=== PATIENT | female | born 1985 | race Caucasian/White ===

== ENCOUNTER 2017-09-21 15:37 | Emergency (ER) | payer BC ==
[~2017-09-21] VITALS: Ht 160 cm; Wt 77.1 kg
[~2017-09-21 15:37] MED LIST: ACHD5005 PO; ANTI14DR4 OT; AZIT250T81 PO; BENZ100C18 PO; BUTA1CAP40 PO; CEPH500C PO; DAYQUIL; DOXY100C2 PO; FLUO40CA PO; OCP; PNT40TEC PO; PRD20T PO; ROBITUSSIN; SCR1T1 PO; SERT50TA9 PO; sprintec PO
[2017-09-21] MEDS ORDERED: LIDOCAINE 1% INJ 20 ML (XYLOCAINE) VIAL INJ ONE (16:00)
[2017-09-21] MEDS ORDERED: cefTRIAXone 250 MG (ROCEPHIN) VIAL IM ONE (16:00)
[2017-09-21] MEDS ORDERED: AZITHROMYCIN 250 MG TAB (ZITHROMAX) PO STA (16:00)
--- NOTE | 2017-09-21 16:17 | ED GU-Female ---
General Stated Complaint: SEVERE ABD PAIN Source: patient Exam Limitations: no limitations History of Present Illness Time seen by provider: 15:55 Initial Comments Here with concerns about Chlamydia. Patient's boyfriend apparently was treated for Chlamydia last night. She denies any significant dysuria. She is here for treatment. Does have some lower abdominal pain but she is currently on her period and states that it feels like period cramps. Timing/Duration: yesterday Severity/Quality: mild Location: suprapubic Radiation: none Activities at Onset: none Sexual [place] History: less than 2 months ago, single partner Associated Symptoms: No fever/chills, No lower back pain, No nausea/vomiting, No urinary frequency Allergies and Home Medications Allergies Uncoded Allergies: NASAL SPRAYS (Adverse Reaction, Unknown, 08/25/14) Home Medications Antipyrine/Benzocaine 14 Ml Drops, 14 ML OT, (Reported) Azithromycin 250 Mg Tablet, 250 MG PO DAILY, #4 Prescribed by: TORRES SILVESTRE on 09/25/14 0139 Constitutional: see HPI, No chills, No fever Respiratory: no symptoms reported Cardiovascular: no symptoms reported Gastrointestinal: see HPI Genitourinary: see HPI Past Eihdekr-Uneumf-Wfapkt Hx Patient Social History Alcohol Use: Denies Use Recreational Drug Use: No Smoking Status: Former Smoker Recent Foreign Travel: No Contact w/Someone Who Travel: No Seasonal Allergies Seasonal Allergies: Yes Surgeries History of Surgeries: Yes Surgeries: Orthopedic, Tonsillectomy Reproductive System Hx Reproductive Disorders: No Gastrointestinal History of Gastrointestinal Di: Yes Gastrointestinal Disorders: Gastroesophageal Reflux Psychosocial Behavioral Health Disorders: Depression Reviewed Nursing Assessment Reviewed/Agree w Nursing PMH: Yes Family Medical History Significant Family History: No Pertinent Family Hx Physical Exam Vital Signs Capillary Refill : General Appearance: WD/WN, no apparent distress Cardiovascular: regular rate, rhythm, no murmur Respiratory: lungs clear, normal breath sounds Gastrointestinal: non tender, soft Neurologic/Psychiatric: alert, oriented x 3 Skin: normal color, warm/dry Progress/Results/Core Measures Suspected Sepsis SIRS Temperature: Pulse: Respiratory Rate: Blood Pressure / Mean: Results/Orders Lab Results Laboratory Tests Test 09/21/17 16:00 Range/Units My Orders Orders - TORRES SILVESTRE MD Urine Bedside (09/21/17 16:00) Ua Culture If Indicated (09/21/17 16:00) Ceftriaxone Injection (Rocephin Injectio (09/21/17 16:00) Azithromycin Tablet (Zithromax Tablet) (09/21/17 16:00) Lidocaine 1% Injection (Xylocaine 1% Inj (09/21/17 16:00) Neis Casey Dna Urine Test (09/21/17 16:00) Chlamydia Dna (09/21/17 16:00) Vital Signs/I&O Capillary Refill : Progress Note : Progress Note Seen and evaluated. UA and UCG ordered. Azithromycin 1000 mg by mouth and Rocephin 250 mg IM ordered. Discharged home with return precautions. Patient verbalize understanding instructions and agreement with plan. Departure Impression Impression: Primary Impression: STI (sexually transmitted infection) Disposition: HOME, SELF-CARE Condition: Improved Departure-Patient Inst. Decision time for Depature: 16:16 Referrals: RUFINO GAMEZ MD (PCP/Family) Primary Care Physician Patient Instructions: Sexually-Transmitted Diseases (DC) Add. Discharge Instructions: Follow-up with your Dr. in a few days for recheck. You may take ibuprofen or Tylenol as needed for pain per package directions. Return for worse pain, fever , vomiting, weakness, breathing problems or other concerns as needed. TORRES SILVESTRE MD Sep 21, 2017 16:17
[2017-09-21 16:21] LABS: BILIRUBIN,URINE NEGATIVE (NEGATIVE); CLARITY,URINE CLEAR; COLOR,URINE YELLOW; GLUCOSE, URINE (UA) NEGATIVE (NEGATIVE); KETONES,URINE 1+ (NEGATIVE); LEUKOCYTE ESTERASE ,URINE NEGATIVE (NEGATIVE); NITRITE,URINE NEGATIVE (NEGATIVE); PH,URINE 6 (5-9); PROTEIN,URINE 2+ (NEGATIVE); UROBILINOGEN,URINE NORMAL (NORMAL)
[2017-09-21 16:42] LABS: BACTERIA,URINE TRACE /HPF; SQUAMOUS EPITHELIAL CELL,UR 0-2 /HPF; WBC,URINE RARE /HPF
[2017-09-21 17:38] VITALS: BP 132/78
--- OUTSIDE RECORDS SUMMARY | 2017-09-22 00:34 | XMS REPORT | Continuity of Care Document ---
Author Author [facility] Organization [facility] Address Unknown Phone Unavailable Allergies Active Description Code Type Severity Reaction Onset Reported/Identified Relationship to Patient Clinical Status Yes NASAL SPRAYS NASAL SPRAYS Unknown N/A 08/25/2014 Medications There is no data. Problems Date Dx Coded Attending Type Code Diagnosis Diagnosed By 08/28/2012 Ot 466.0 08/28/2012 Ot 786.2 02/05/2013 MIMI MILIAN DO Ot 462 2013 YULIET SOLER MD Ot 530.81 2013 YULIET SOLER MD Ot 786.50 08/25/2014 Ot 339.42 08/25/2014 Ot 784.0 09/25/2014 TORRES SILVESTRE MD Ot 380.10 09/25/2014 TORRES SILVESTRE MD Ot 382.9 09/25/2014 TORRES SILVESTRE MD Ot 388.70 Procedures There is no data. Results Test Result Range Complete urinalysis with reflex to culture - 09/21/17 16:00 Urine color determination YELLOW NRG Urine clarity determination CLEAR NRG Urine pH measurement by test strip 6 5-9 Specific gravity of urine by test strip 1.025 1.016- 1.022 Urine protein assay by test strip, semi-quantitative 2+ NEGATIVE Urine glucose detection by automated test strip NEGATIVE NEGATIVE Erythrocytes detection in urine sediment by light microscopy 2+ NEGATIVE Urine ketones detection by automated test strip 1+ NEGATIVE Urine nitrite detection by test strip NEGATIVE NEGATIVE Urine total bilirubin detection by test strip NEGATIVE NEGATIVE Urine urobilinogen measurement by automated test strip (mass/volume) NORMAL NORMAL Urine leukocyte esterase detection by dipstick NEGATIVE NEGATIVE Automated urine sediment erythrocyte count by microscopy (number/high power field) NONE NRG Automated urine sediment leukocyte count by microscopy (number/high power field ) RARE NRG Bacteria detection in urine sediment by light microscopy TRACE NRG Squamous epithelial cells detection in urine sediment by light microscopy 0-2 NRG Crystals detection in urine sediment by light microscopy NONE NRG Casts detection in urine sediment by light microscopy NONE NRG Mucus detection in urine sediment by light microscopy SMALL NRG Complete urinalysis with reflex to culture NO NRG Urine beta human chorionic gonadotropin (hCG) measurement - 09/21/17 16:00 Urine beta human chorionic gonadotropin (hCG) measurement NEGATIVE NEGATIVE Encounters ACCT No. Visit Date/Time Discharge Status Pt. Type Provider Facility Loc./Unit Complaint [id number] 09/25/2014 01:03:00 09/25/2014 01:48:00 DIS Emergency KONRAD YOUNG, TORRES [facility] ER [id number] 2013 11:07:00 2013 14:15:00 DIS Emergency RYDER YOUNG, YULIET [facility] ER [id number] 02/05/2013 15:21:00 02/05/2013 16:41:00 DIS Emergency MIMI MILIAN DO [facility] ER [id number] 09/21/2017 16:43:00 Document Registration [id number] 08/26/2014 14:56:00 Document Registration [id number] 08/28/2012 15:21:00 Document Registration
== END 2017-09-21 17:38 | disposition home or self-care (01) ==
LOC: EDUNIT# 15:37 → ER 15:39
DX: A64 Unspecified sexually transmitted disease (principal); K21.9 Gastro-esophageal reflux disease without esophagitis; F32.9 Major depressive disorder, single episode, unspecified; Z87.891 Personal history of nicotine dependence; Z90.89 Acquired absence of other organs
CPT/HCPCS: 36415; 81000; 84703; 87491; 87591; 99284

== ENCOUNTER 2018-04-16 13:01 | Emergency (ER) | payer BC, MEDICAID ==
[~2018-04-16] VITALS: Ht 167.6 cm; Wt 133.4 kg
--- NOTE | 2018-04-16 13:49 | ED EENT ---
History of Present Illness General Chief Complaint: Eye Problems Stated Complaint: RT EYE ISSUES Nursing Triage Note: Pt ambulated to rm 7 w/o difficulty. Pt's R is visibly swollen and red. Pt states the eye was itching yesterday and then she woke up this morning with her R eye swollen. Pt was working in yard over this weekend and wonders if it might be related. Pt states she is itchy from the chest up and the L eye is beginning to itch as well. Pt will be 23 weeks on . History of Present Illness Date Seen by Provider: Apr 16, 2018 Time Seen by Provider: 13:44 Initial Comments Patient is a 33-year-old female who presents to the emergency room with complaints of right eye swelling, redness, itching, pain. She states that the itching started yesterday when she woke up this morning her right eye was swollen, red, and painful. She denies any discharge but reports that she has been working in her yard and had itching on her upper chest and face and wonders if this is related. She also reports that she is [address] CORCORAN and [facility]. There is no rash noted on her chest and face. Timing/Duration: this morning, yesterday Location: eye (R) Prearrival Treatment: over the counter meds (Benadryl) Associated Symptoms: No facial pain/swelling, No fever, No nasal congestion/ drainage, No sinus infection, No sore throat Allergies and Home Medications Allergies Uncoded Allergies: NASAL SPRAYS (Adverse Reaction, Unknown, 08/25/14) Home Medications Azithromycin 250 Mg Tablet, 250 MG PO DAILY Prescribed by: TORRES SILVESTRE on 09/25/14 0139 Tobramycin/Dexamethasone 5 Ml Drops.susp, 5 ML OP Q4H Prescribed by: PAIGE DE LA VEGA on 04/16/18 1358 Patient Home Medication List Home Medication List Reviewed: Yes Review of Systems Constitutional: see HPI; No fever, No malaise Eyes: See HPI, Pain; Denies Vision Changes; Other (swelling and itching to upper and lower lids of the right eye.) Ears: Pain Skin: see HPI, pruritus (to right eye lids) All Other Systems Reviewed Negative Unless Noted: Yes Past Kdyrtcq-Eotlbv-Ykllkl Hx Patient Social History Alcohol Use: Denies Use Recreational Drug Use: No 2nd Hand Smoke Exposure: No Recent Foreign Travel: No Contact w/Someone Who Travel: No Recent Infectious Disease Expo: No Recent Hopitalizations: No Physical Abuse: No Sexual Abuse: No Seasonal Allergies Seasonal Allergies: Yes Past Medical History Surgeries: Yes Adenoidectomy, Orthopedic, Tonsillectomy Respiratory: No Cardiac: No Neurological: No : Yes (23 weeks this ) Reproductive Disorders: No Gastrointestinal: Yes Gastroesophageal Reflux Musculoskeletal: No Endocrine: No HEENT: No Cancer: No Psychosocial: Yes Anxiety, Depression Nursing Suicide Risk Score: 0 Integumentary: No Blood Disorders: No Family Medical History No Pertinent Family Hx Visual Acuity : Eye Location: Bilaterally Vision Acuity Degree: 20/20 (with corrective lenses) Physical Exam Vital Signs Vital Signs - First Documented 04/16/18 04/16/18 13:02 14:40 Temp 97.4 Pulse 92 Resp 17 B/P (MAP) 125/67 (86) Pulse Ox 98 O2 Delivery Room Air Height, Weight, BMI Height: 5'6.00" Weight: 294lbs. oz. 133.474743vw; BMI Method:Stated General Appearance: WD/WN, no apparent distress Eyes: right eye lid inflammation, right eye other (lid swelling); left eye normal inspection; bilateral eye PERRL, bilateral eye EOMI Cardiovascular: regular rate, rhythm, no edema, no gallop, no JVD, no murmur Respiratory: chest non-tender, lungs clear, normal breath sounds, no respiratory distress, no accessory muscle use Neurologic/Psychiatric: alert, normal mood/affect, oriented x 3 Skin: normal color, warm/dry Progress/Results/Core Measures Results/Orders Vital Signs/I&O Blood Pressure Mean: 86 Progress Progress Note : Progress Note I have seen and evaluated the patient. Due to the inflammation, itching, and lid swelling in one affected eye this leads me to believe that this is a bacterial induced reaction vs an allergic reaction. The patient agrees with plans of care, discharge, and return precautions. Departure Impression Primary Impression: Blepharitis of eyelid of right eye Qualified Codes: H01.001 - Unspecified blepharitis right upper eyelid; H01.002 - Unspecified blepharitis right lower eyelid Disposition: 01 HOME, SELF-CARE Condition: Stable/Unchanged Departure-Patient Inst. Decision time for Depature: 13:50 Referrals: MAGDIEL GUTIERREZ DO Patient Instructions: Blepharitis Add. Discharge Instructions: Used eyedrops as directed. Continue all other previously prescribed medications. Follow up with [facility] within 1 week for recheck. Return back to the emergency room for any worsening symptoms or any concerns as needed. All discharge instructions reviewed with patient and/or family. Voiced understanding. Scripts Tobramycin/Dexamethasone (Tobradex Eye Drops) 5 Ml Drops.susp 5 ML OP Q4H for 10 Days, #2 DROPS Prov: PAIGE DE LA VEGA 04/16/18 PAIGE DE LA VEGA Apr 16, 2018 13:49
[2018-04-16] MEDS ORDERED: TOBR5DRO2 OP (13:58)
[2018-04-16 14:40] VITALS: BP 125/67
[2018-05-01] MEDS ORDERED: SERT25TA PO (22:53)
[2018-05-01] MEDS ORDERED: MONT10TA21 PO (22:53)
[2018-05-01] MEDS ORDERED: PREN-53 PO (22:53)
== END 2018-04-16 14:40 | disposition home or self-care (01) ==
LOC: EDUNIT# 13:01 → ER 13:03
DX: O99.89 Other specified diseases and conditions complicating pregnancy, childbirth and the puerperium (principal); H01.003 Unspecified blepharitis right eye, unspecified eyelid; O99.612 Diseases of the digestive system complicating pregnancy, second trimester; K21.9 Gastro-esophageal reflux disease without esophagitis; O99.342 Other mental disorders complicating pregnancy, second trimester; F32.9 Major depressive disorder, single episode, unspecified; F41.9 Anxiety disorder, unspecified; Z88.8 Allergy status to other drugs, medicaments and biological substances; Z90.89 Acquired absence of other organs
CPT/HCPCS: 99282

== ENCOUNTER 2018-07-19 23:17 | Outpatient (CLI) | payer BC, MEDICAID ==
[~2018-07-19] VITALS: Ht 165.1 cm; Wt 140.6 kg
[~2018-07-19 23:17] MED LIST changes: +MONT10TA21 PO; +PREN-53 PO; +SERT25TA PO; +TOBR5DRO2 OP
[2018-07-19 23:54] LABS: BILIRUBIN,URINE NEGATIVE (NEGATIVE); CLARITY,URINE SLIGHTLY CLOUDY; COLOR,URINE YELLOW; GLUCOSE, URINE (UA) 3+ (NEGATIVE); KETONES,URINE 1+ (NEGATIVE); LEUKOCYTE ESTERASE ,URINE 1+ (NEGATIVE); NITRITE,URINE NEGATIVE (NEGATIVE); PH,URINE 6 (5-9); PROTEIN,URINE 3+ (NEGATIVE); UROBILINOGEN,URINE 1 MG/DL (NORMAL)
[2018-07-20 00:06] VITALS: BP 129/67
[2018-07-20 00:17] LABS: BACTERIA,URINE LARGE /HPF; RBC,URINE 0-2 /HPF; WBC,URINE 0-2 /HPF
[2018-07-20] MEDS ORDERED: [UNRECOGNIZED DRUG - CODE] PO (00:26)
== END 2018-07-20 00:40 | disposition home or self-care (01) ==
LOC: WSo 23:17 → LDRP 23:18 → WSo 07-20 00:40
PROVIDERS: ATTEND Obstetrics & Gynecology
DX: O99.89 Other specified diseases and conditions complicating pregnancy, childbirth and the puerperium (principal); R10.9 Unspecified abdominal pain; Z3A.36 36 weeks gestation of pregnancy
CPT/HCPCS: 81000; 87088; 99212

== ENCOUNTER 2018-07-24 12:56 | Outpatient (CLI) | payer BC, MEDICAID ==
[~2018-07-24] VITALS: Ht 165.1 cm; Wt 142.0 kg
[~2018-07-24 12:56] MED LIST changes: +[UNRECOGNIZED DRUG - CODE] PO
[2018-07-24] MEDS ORDERED: OMEP20TA33 PO (13:05)
[2018-07-24 13:08] VITALS: BP 139/83
== END 2018-07-24 14:09 | disposition home or self-care (01) ==
LOC: PREOP 12:56
PROVIDERS: ATTEND Obstetrics & Gynecology
DX: Z01.818 Encounter for other preprocedural examination (principal)
CPT/HCPCS: 87081

== ENCOUNTER 2018-07-26 05:49 | Inpatient (IN) | payer BC, MEDICAID ==
[2018-07-25] MEDS: CATHETER FLUSH 10 ML SYR IV SCH (06:16)
[~2018-07-26] VITALS: Ht 165.1 cm; Wt 143.8 kg
[~2018-07-26 05:49] MED LIST changes: +CITRIC ACID/SOB CIT (BICITRA) 30 ML UDC ONE; +FAMOTIDINE 20MG/2ML IV (PEPCID) ONE; +LACTATED RINGERS 1,000 ML IV ONE; +METOCLOPRAMIDE INJ 10 MG/2 ML (REGLAN) ONE; +OMEP20TA33 PO; +ceFAZolin 2 GM IV Premixed 50 ML ONE
[2018-07-26] MEDS ORDERED: FAMOTIDINE 20MG/2ML IV (PEPCID) IV ONE (06:00)
[2018-07-26] MEDS ORDERED: CITRIC ACID/SOB CIT (BICITRA) 30 ML UDC PO ONE (06:00)
[2018-07-26] MEDS ORDERED: METOCLOPRAMIDE INJ 10 MG/2 ML (REGLAN) IV ONE (06:00)
[2018-07-26] MEDS ORDERED: ceFAZolin 2 GM IV Premixed 50 ML IV ONE (06:00)
[2018-07-26] MEDS: CATHETER FLUSH 10 ML SYR IV SCH (06:16)
[2018-07-26] MEDS: LACTATED RINGERS 1,000 ML IV PRN ×2 (06:16→07:51)
[2018-07-26 06:25] LABS: BASOPHILS % (AUTO) 0 % (0-10); EOSINOPHILS # (AUTO) 0.1 10^3/uL (0.0-0.3); EOSINOPHILS % (AUTO) 1 % (0-10); HEMATOCRIT 34 % (35-52); HEMOGLOBIN 11.1 G/DL (11.5-16.0); LYMPHOCYTES # (AUTO) 1.2 X 10^3 (1.0-4.0); LYMPHOCYTES % (AUTO) 13 % (12-44); MEAN CORPUSCULAR HEMOGLOBIN 27 PG (25-34); MEAN CORPUSCULAR HGB CONC 33 G/DL (32-36); MEAN CORPUSCULAR VOLUME 82 FL (80-99); MEAN PLATELET VOLUME 9.9 FL (7.4-10.4); MONOCYTES # (AUTO) 0.9 X 10^3 (0.0-1.0); MONOCYTES % (AUTO) 10 % (0-12); NEUTROPHILS # (AUTO) 7.1 X 10^3 (1.8-7.8); NEUTROPHILS % (AUTO) 77 % (42-75); PLATELET COUNT 228 10^3/uL (130-400); RED BLOOD COUNT 4.14 10^6/uL (4.35-5.85); RED CELL DISTRIBUTION WIDTH 14.3 % (10.0-14.5); WHITE BLOOD COUNT 9.3 10^3/uL (4.3-11.0)
[2018-07-26 06:39] LABS: ALANINE AMINOTRANSFERASE 9 U/L (0-55); ALBUMIN 3.1 GM/DL (3.2-4.5); ALKALINE PHOSPHATASE 66 U/L (40-136); BILIRUBIN,TOTAL 0.2 MG/DL (0.1-1.0); BUN/CREATININE RATIO 16; CALCIUM 8.8 MG/DL (8.5-10.1); CARBON DIOXIDE 20 MMOL/L (21-32); CHLORIDE 111 MMOL/L (98-107); CREATININE SERUM 0.58 MG/DL (0.60-1.30); GFR ESTIMATED > 60; GLUCOSE 104 MG/DL (70-105); SODIUM 139 MMOL/L (135-145)
[2018-07-26] MEDS ORDERED: BUPIVACAINE SPINAL 0.75% (SENSORCAINE) 2 ML AMP ONE (07:04)
[2018-07-26] MEDS ORDERED: OXYTOCIN/NORMAL SALINE 500 ML IV ONE ×3 (07:04→09:33)
[2018-07-26] MEDS ORDERED: ONDANSETRON 4 MG/2 ML (SDV) Z0FRAN ONE ×2 (07:04→08:09)
[2018-07-26] MEDS ORDERED: fentaNYL INJECTION 100 MCG/2 ML AMP ONE (07:05)
[2018-07-26] MEDS ORDERED: LIDOCAINE PF 2% 5 ML (XYLOCAINE) VIAL ONE ×3 (07:12→08:47)
[2018-07-26] MEDS ORDERED: FLU QUADRIvalent (5+ YOA) 2018-2019 (AFLURIA) 0.5 ML IM ONE (07:15)
--- NOTE | 2018-07-26 07:22 | History & Physical-OB ---
OB - Chief Complaint & HPI Date/Time Date of Admission: Date of Admission: Jul 26, 2018 at 5:49 am Date seen by a Provider: Jul 26, 2018 Time Seen by a Provider: 07:05 Chief Complaint/History OB-Reason for Admission/Chief: Section Hx : 1 Hx Para: 0 Expected Date of Delivery: Aug 15, 2018 Gestational Age in Weeks: 37 Gestational Age in Days: 1 Indication for : other (Marginal previa) Admission Nurse Assessment Rev: Yes History of Labs HBsAg NR HIV NR GC neg GBS neg Allergies and Home Medications Allergies Uncoded Allergies: NASAL SPRAYS (Adverse Reaction, Mild, HEADACHES, 07/24/18) Home Medications Montelukast Sodium 10 Mg Tablet, 10 MG PO DAILY, (Reported) Omeprazole Magnesium 20 Mg Tablet.dr, 20 MG PO HS, (Reported) Imh749/Iron Fumarate/FA/Dss 1 Each Tablet, 1 EACH PO DAILY, (Reported) Sertraline HCl 25 Mg Tablet, 25 MG PO DAILY, (Reported) Patient Home Medication List Home Medication List Reviewed: Yes OB - History Hx of Present Care: Yes Ultrasounds: Normal mid trimester US Obstetrical Complications: Gestational Diabetes, Other (Placenta previa) Medical Complications: None Delivery History Hx Blood Disorders: No Adverse Rxn to Tranfusion: No (N/A) Patient Past Medical History BMI 52 Social History/Family History HIV/AIDS: No Recent Infectious Disease Expo: No Sexually Transmitted Disease: No Alcohol Use: Denies Use Recreational Drug Use: No 2nd Hand Smoke Exposure: No OB - Admission Exam Physical Exam HEENT: NCAT Heart: Rhythm Normal Lungs: Clear Abdomen: Gravid Extremities: Normal Reflexes: Normal Heart Rate: 130's Accelerations: Accelerations Present Decelerations: No Decelerations Short Term Variability: Present Event Producer Variability: Average (6-25) Contractions on Admission: >10 Minutes Apart Intensity: Mild Labs Laboratory Tests Test 07/26/18 06:10 Range/Units White Blood Count 9.3 4.3-11.0 10^3/uL Red Blood Count 4.14 L 4.35-5.85 10^6/uL Hemoglobin 11.1 L 11.5-16.0 G/DL Hematocrit 34 L 35-52 % Mean Corpuscular Volume 82 80-99 FL Mean Corpuscular Hemoglobin 27 25-34 PG Mean Corpuscular Hemoglobin Concent 33 32-36 G/DL Red Cell Distribution Width 14.3 10.0-14.5 % Platelet Count 228 130-400 10^3/uL Mean Platelet Volume 9.9 7.4-10.4 FL Neutrophils (%) (Auto) 77 H 42-75 % Lymphocytes (%) (Auto) 13 12-44 % Monocytes (%) (Auto) 10 0-12 % Eosinophils (%) (Auto) 1 0-10 % Basophils (%) (Auto) 0 0-10 % Neutrophils # (Auto) 7.1 1.8-7.8 X 10^3 Lymphocytes # (Auto) 1.2 1.0-4.0 X 10^3 Monocytes # (Auto) 0.9 0.0-1.0 X 10^3 Eosinophils # (Auto) 0.1 0.0-0.3 10^3/uL Basophils # (Auto) 0.0 0.0-0.1 10^3/uL Sodium Level 139 135-145 MMOL/L Potassium Level 4.0 3.6-5.0 MMOL/L Chloride Level 111 H 98-107 MMOL/L Carbon Dioxide Level 20 L 21-32 MMOL/L Anion Gap 8 5-14 MMOL/L Blood Urea Nitrogen 9 7-18 MG/DL Creatinine 0.58 L 0.60-1.30 MG/DL Estimat Glomerular Filtration Rate > 60 BUN/Creatinine Ratio 16 Glucose Level 104 70-105 MG/DL Calcium Level 8.8 8.5-10.1 MG/DL Corrected Calcium 9.5 8.5-10.1 MG/DL Total Bilirubin 0.2 0.1-1.0 MG/DL Aspartate Amino Transf (AST/SGOT) 11 5-34 U/L Alanine Aminotransferase (ALT/SGPT) 9 0-55 U/L Alkaline Phosphatase 66 40-136 U/L Total Protein 6.0 L 6.4-8.2 GM/DL Albumin 3.1 L 3.2-4.5 GM/DL OB - Assessment/Plan/Diagnosis Assessment Assessment: section Admission Dx 33 yo @ 37.1 weeks Marginal Placenta previa GDMA 2 on glyburide GBS neg BMI 52 Admission Status: Inpatient Order (span 2 midnights) Reason for Inpatient Admission: 33 yo @ 37.1 weeks Marginal Placenta previa GDMA 2 on glyburide GBS neg BMI 52 Plan Plan: Section BRIDGER CORCORAN DO Jul 26, 2018 7:22 am
[2018-07-26] MEDS ORDERED: TETANUS,DIPTH,PERTUSS P/F (BOOSTRIX) 0.5 ML VIAL IM SCH (07:30)
[2018-07-26] MEDS ORDERED: OXYTOCIN/NORMAL SALINE 500 ML IV SCH (07:30)
[2018-07-26] MEDS ORDERED: HYDROmorphone 2 MG/ML VIAL (DILAUDID) IV PRN (07:30)
[2018-07-26] MEDS ORDERED: ONDANSETRON 4 MG/2 ML (SDV) Z0FRAN IVP PRN (07:30)
[2018-07-26] MEDS ORDERED: MEASLES,MUMPS,RUBELLA 1 EA INJ SC SCH (07:30)
[2018-07-26] MEDS ORDERED: HYDROcodone/APAP 5 MG/325 MG (LORTAB) TAB PO PRN (07:30)
[2018-07-26] MEDS ORDERED: ONDANSETRON 4 MG/2 ML (SDV) Z0FRAN IV PRN (09:00)
[2018-07-26] MEDS ORDERED: NALOXONE 0.4 MG/ML 1 ML (NARCAN) VIAL IV PRN (09:00)
[2018-07-26] MEDS ORDERED: diphenhydrAMINE 50 MG/ML INJ (BENADRYL) IV PRN (09:00)
[2018-07-26] MEDS ORDERED: DOCUSATE SODIUM 100 MG (COLACE) CAP PO SCH (09:00)
[2018-07-26] MEDS ORDERED: BUPIVACAINE 0.5% 30 ML (SENSORCAINE) VIAL ONE (09:34)
[2018-07-26 10:15] VITALS: BP 136/88
[2018-07-26] MEDS: KETOROLAC 30 MG/ML VIAL IVP SCH ×3 (10:25→22:14)
--- NOTE | 2018-07-26 13:20 | OPERATIVE REPORT ---
DATE OF SERVICE: PREOPERATIVE DIAGNOSES: 1. A 33-year-old G1, P0 at 37 weeks gestation. 2. Marginal placental previa. 3. Morbid obesity, BMI of 52. 4. Gestational diabetes mellitus 2 on oral glyburide. POSTOPERATIVE DIAGNOSES: 1. A 33-year-old G1, P0 at 37 weeks gestation. 2. Marginal placental previa. 3. Morbid obesity, BMI of 52. 4. Gestational diabetes mellitus 2 on oral glyburide. PROCEDURE: Primary low transverse section. SURGEON: Naga Jefferson DO. ANESTHESIA: Spinal. ESTIMATED BLOOD LOSS: 800 mL. URINE OUTPUT: A 75 mL clear urine at the end of the procedure. FLUIDS: 1700 mL of lactated Ringer solution. FINDINGS: A live male infant weighing 7 pounds and 1 ounce with Apgars of 8 and 9. Grossly normal appearing uterus, bilateral fallopian tubes and ovaries. SPECIMENS SENT: Placenta. INDICATIONS FOR PROCEDURE: This 33-year-old female was a patient, who was transferred to care approximately 26 to 28 weeks from her primary provider in [place]. Upon her arrival in my clinic, her was already complicated by morbid obesity and suspected gestational diabetes. Confirming that diagnosis, I started the patient on glyburide after her blood sugars were found to be elevated, especially fasting. We were able to get limited control; however, there was some question of medical compliance with blood sugar testing and taking her glyburide. The patient was also noted to have a placenta previa at her 20-week scan; it did appear to be marginal under 28-week scan; however, at the scan earlier this week at 36 weeks, the marginal previa was noted to be less than a centimeter away from the internal cervical os on transvaginal ultrasounds. I discussed with the patient my concerns with potential abruption going forward especially if the onset of labor should occur. We discussed proceeding with the primary at 37 weeks. Risks of the procedure were discussed with the patient in detail including risk of bleeding, infection, damage to surrounding structures including, but not limited to bowel, bladder, ureter and kidneys. After all the patient's questions were answered, consent was obtained and reviewed in the preoperative area and she was then taken to the operating room. OPERATIVE REPORT IN DETAIL: Once in the operating room and spinal analgesia was found to be adequate, she was placed in the supine position with leftward tilt, prepped and draped in a normal sterile fashion. We do have to suspend her panniculus upward using tape on the upper abdomen prior to prepping her in order to obtain adequate retraction and visualization for the surgery. Anesthesia was then tested after draping was performed and a time-out was performed. I then proceeded to make a Pfannenstiel skin incision with a knife and carried to the underlying fascia using Bovie cautery. The fascial incision was extended laterally using Bovie cautery. Superior edge of fascial incision was then grasped with Meli clamps, tented up and dissected off the underlying rectus muscles. The inferior aspect of the fascial incision was then grasped with Meli clamps, tented up and dissected off the underlying rectus muscles. The rectus muscles were then dissected down the midline using Lind scissors, which exposed the peritoneum which I entered using blunt extension and traction. I then placed the Ari ring retractor in the peritoneal incision, which offered second lateral sidewall retraction. I was able to identify the lower uterine segment, which was found to be thinned out. I made a low transverse incision to the vesicouterine peritoneum and bluntly dissect the bladder flap off of the lower uterine segment. I proceeded with myotomy until membranes were visualized, at which point I extended the uterine incision laterally and superiorly using bandage scissors. In the process of doing so, I ruptured the membranes and clear fluid was noted. The infant was found in the vertex presentation. With gentle fundal pressure, the infant's head was elevated to the opening of the incision, but unable to deliver through the incision due to the patient's thick body wall and body habitus. I ended up applying a Kiwi vacuum extractor down the midsagittal suture line on the infant's skull in order to allow for delivery. I applied 500 mmHg as recommended on the device and with gentle traction, I was able to deliver the head through the incision where I bulb suctioned the nares and oropharynx. Anterior and posterior shoulders were able to be delivered at that point and the baby was then brought out to the operative field where the cord was doubly clamped and cut and infant was handed off to , who was present for the delivery. Cord blood was collected. Three-vessel cord with intact placenta was delivered spontaneously thereafter. IV Pitocin was initiated to facilitate uterine contraction. Uterine fundus was confirmed by manual massage. The uterus was then exteriorized and cleared of all endometrial clots and debris. I then proceeded with closing the uterine incision using 0 Vicryl suture in running locked fashion. Second layer of imbricating 0 Monocryl was placed. Excellent hemostasis was noted after doing this. I then proceeded with putting the uterus back within the pelvis and copiously irrigating the pelvis using normal saline. Once again, there was no active bleeding noted from any of my dissection planes. I placed Interceed antiadhesive over my low transverse incision. I then proceeded with closing the peritoneum using 3-0 Vicryl suture in a running fashion. The rectus muscle was reapproximated using 3-0 Vicryl suture in interrupted fashion. The fascia was reapproximated using 0 Vicryl stitch in a running fashion. The subcutaneous tissue was reapproximated using 3-0 plain interrupted subcutaneous stitches. Skin was reapproximated with ramila and sterile dressings with adhesive white tape. The patient tolerated the procedure well and sent to the recovery area in stable condition. Lap and sponge counts were correct at the end of the procedure. Instrument counts were correct as well. Two grams of Ancef given preoperatively for infection prophylaxis. Job ID: [id number] DocumentID: [id number] Dictated Date: 07/26/2018 09:13:29 Deck Steward Date: 07/26/2018 13:20:36 Dictated By: DO NADIYA ZAMORANO
[2018-07-26 15:05] VITALS: BP 126/82
[2018-07-26] MEDS ORDERED: PATIENT MAY USE OWN MEDS, ALL MC SCH (17:15)
[2018-07-26] MEDS ORDERED: PATIENT MAY USE OWN MED,SINGLE MED PO SCH (17:15)
[2018-07-26] MEDS ORDERED: LEVO5TAB12 PO (17:18)
[2018-07-26] MEDS ORDERED: SERT50TA2 PO (17:43)
[2018-07-26 19:40] VITALS: BP 123/76
[2018-07-27 01:00] VITALS: BP 131/77
[2018-07-27 04:19] VITALS: BP 126/78
[2018-07-27] MEDS: KETOROLAC 30 MG/ML VIAL IVP SCH (04:19)
[2018-07-27 06:49] LABS: BASOPHILS % (AUTO) 0 % (0-10); EOSINOPHILS # (AUTO) 0.1 10^3/uL (0.0-0.3); EOSINOPHILS % (AUTO) 1 % (0-10); HEMATOCRIT 28 % (35-52); LYMPHOCYTES % (AUTO) 12 % (12-44); MEAN CORPUSCULAR HEMOGLOBIN 27 PG (25-34); MEAN CORPUSCULAR HGB CONC 33 G/DL (32-36); MEAN CORPUSCULAR VOLUME 83 FL (80-99); MONOCYTES # (AUTO) 0.6 X 10^3 (0.0-1.0); MONOCYTES % (AUTO) 7 % (0-12); NEUTROPHILS # (AUTO) 6.6 X 10^3 (1.8-7.8); NEUTROPHILS % (AUTO) 80 % (42-75); PLATELET COUNT 200 10^3/uL (130-400); RED BLOOD COUNT 3.35 10^6/uL (4.35-5.85); RED CELL DISTRIBUTION WIDTH 14.6 % (10.0-14.5); WHITE BLOOD COUNT 8.2 10^3/uL (4.3-11.0)
[2018-07-27] MEDS ORDERED: IBUPROFEN 600 MG (MOTRIN) TAB PO SCH (07:30)
[2018-07-27 08:00] VITALS: BP 132/80
[2018-07-27] MEDS ORDERED: NON-FORMULARY MEDICATION 1 EA EA (Montelukast Sodium (Singulair) 10 MG) PO SCH (09:00)
[2018-07-27] MEDS ORDERED: LEVOCETIRIZINE 5 MG TAB (XYZAL) NON-FORMULARY PO SCH (09:00)
[2018-07-27] MEDS ORDERED: NON-FORMULARY MEDICATION 1 EA EA (Sertraline HCl (Zoloft) 25 MG) PO SCH (09:00)
[2018-07-27] MEDS ORDERED: MONTELUKAST 10 MG (SINGULAIR) TAB PO SCH (09:00)
[2018-07-27] MEDS ORDERED: SERTRALINE 50 MG (ZOLOFT) TABLET PO SCH (09:00)
--- NOTE | 2018-07-27 09:15 | Postpartum Progress Note ---
Note Note Day # 1 Subjective: Patient is without complaints. Ambulating, voiding. Tolerating a regular diet without nausea or vomiting. Normal lochia. Pain is well controlled with oral pain medications. Objective: Vital Sign - Last 24 Hours 07/26/18 07/26/18 07/26/18 07/26/18 10:15 12:09 15:05 19:40 Temp 99.2 99.1 99.0 Pulse 77 86 83 Resp 18 18 18 B/P (MAP) 136/88 (104) 126/82 (97) 123/76 (92) Pulse Ox 98 99 98 O2 Delivery Room Air Room Air Room Air Room Air 07/27/18 07/27/18 01:00 04:19 Temp 98.2 98.8 Pulse 79 83 Resp 18 18 B/P (MAP) 131/77 (95) 126/78 (94) Pulse Ox 97 98 O2 Delivery Room Air Room Air Intake and Output 07/26/18 07/26/18 07/27/18 15:00 23:00 07:00 Intake Total 1050 ml 550 ml Output Total 125 ml 900 ml Balance 925 ml -350 ml Physical Exam: General - Alert and oriented, no apparent distress Abdomen - Soft, appropriately tender to palpation, non-distended, fundus firm at umbilicus Extremities - no edema, negative Gina's bilaterally Incision- c/d/i Assessment: POD 1 PLTCS Acute blood loss anemia GDMA2 Plan: Routine care. Monitor BS today Encourage breast feeding. Encourage ambulation. Ferrous sulfate supplementation. Plan for discharge tomorrow Vitals - Labs Vital Signs - I&O Vital Signs Date Time Temp Pulse Resp B/P (MAP) Pulse Ox O2 Delivery O2 Flow Rate FiO2 07/27/18 04:19 98.8 83 18 126/78 (94) 98 Room Air 07/27/18 01:00 98.2 79 18 131/77 (95) 97 Room Air 07/26/18 19:40 99.0 83 18 123/76 (92) 98 Room Air 07/26/18 15:05 99.1 86 18 126/82 (97) 99 Room Air 07/26/18 12:09 Room Air 07/26/18 10:15 99.2 77 18 136/88 (104) 98 Room Air I & O 07/27/18 07:00 Intake Total 1600 ml Output Total 1025 ml Balance 575 ml Labs Laboratory Tests 07/27/18 05:54: White Blood Count 8.2, Red Blood Count 3.35L, Hemoglobin 9.0L, Hematocrit 28L, Mean Corpuscular Volume 83, Mean Corpuscular Hemoglobin 27, Mean Corpuscular Hemoglobin Concent 33, Red Cell Distribution Width 14.6H, Platelet Count 200, Mean Platelet Volume 10.0, Neutrophils (%) (Auto) 80H, Lymphocytes (%) (Auto) 12 , Monocytes (%) (Auto) 7, Eosinophils (%) (Auto) 1, Basophils (%) (Auto) 0, Neutrophils # (Auto) 6.6, Lymphocytes # (Auto) 1.0, Monocytes # (Auto) 0.6, Eosinophils # (Auto) 0.1, Basophils # (Auto) 0.0 BRIDGER CORCORAN DO Jul 27, 2018 9:15 am
--- NOTE | 2018-07-27 09:18 | Discharge Inst-Women's Service ---
Discharge Inst-Women's Serv Depart Medication/Instructions New, Converted or Re-Newed RX: RX on Chart Final Diagnosis POD 2 PLTCS Acute blood loss anemia GDMA2 Consults/Follow Up Additional Follow Up: Yes Orders/Referrals Dr. Jefferson in 7-10 days and in 6 weeks Activity Activity: Activity as Tolerated Driving Instructions: No Driving for 1 Week NO SMOKING: NO SMOKING Nothing Inside Vagina: No Douching, No [place], No Tampons Diet Discharge Diet: No Restrictions Symptoms to Report to : Bleeding Excessive, Pain Increased, Fever Over 101 Degrees F, Vaginal Bleeding Increase, Questions/Concerns For Any Problems or Questions: Contact Your Physician Skin/Wound Care Infection Signs and Symptoms: Increased Redness, Foul Odor of Wound, Increased Drainage, Skin Itchy or Has a Rash, Increased Swelling, Temperature Above 101 F Operative Area Clean and Dry: Keep Incision Clean/Dry Stitches/[place]/Dermabond: Dermabond, Care of Stitches Bathing Instructions: BRIDGER Hilario DO Jul 27, 2018 9:18 am
[2018-07-27] MEDS ORDERED: DOCU100C37 PO (09:19)
[2018-07-27] MEDS ORDERED: IBUP-844 PO (09:19)
[2018-07-27] MEDS ORDERED: ACHD5005 PO (09:19)
[2018-07-27 13:27] VITALS: BP 132/80
--- NOTE | 2018-07-27 16:09 | Anesthesia-Regional Post-Op ---
Regional Patient Condition Mental Status: Alert, Oriented x3 Circulation: Same as Pre-Op Headache: Absent Sensation: Full Recovery Motor Block: Absent Post Op Complications Complications None Follow Up Care/Instructions Patient Instructions None needed. Anesthesia/Patient Condition Patient is doing well, no complaints, stable vital signs, no apparent adverse anesthesia problems. No complications reported per nursing. DEEPTI MORENO CRNA Jul 27, 2018 16:09
== END 2018-07-27 13:20 | disposition home or self-care (01) | DRG 787 ==
LOC: LDRP 05:49
PROVIDERS: ADMIT Obstetrics & Gynecology; ATTEND Obstetrics & Gynecology
PROC: 10D00Z1 Extraction of Products of Conception, Low, Open Approach (ICD-10-PCS; principal; 2018-07-26 07:14)
DX: O44.23 Partial placenta previa NOS or without hemorrhage, third trimester (principal); O24.425 Gestational diabetes mellitus in childbirth, controlled by oral hypoglycemic drugs; E66.01 Morbid (severe) obesity due to excess calories; Z68.43 Body mass index [BMI] 50.0-59.9, adult; O99.214 Obesity complicating childbirth; O90.81 Anemia of the puerperium; D62 Acute posthemorrhagic anemia; Z3A.37 37 weeks gestation of pregnancy; Z37.0 Single live birth
CPT/HCPCS: 36415; 80053; 82962; 85025; 86850; 86900; 86901; 94664

== ENCOUNTER 2018-08-26 20:57 | Emergency (ER) | payer BC, MEDICAID ==
[~2018-08-26] VITALS: Ht 167.6 cm; Wt 129.3 kg
[~2018-08-26 20:57] MED LIST changes: -CITRIC ACID/SOB CIT (BICITRA) 30 ML UDC ONE; +DOCU100C37 PO; -FAMOTIDINE 20MG/2ML IV (PEPCID) ONE; +IBUP-844 PO; -LACTATED RINGERS 1,000 ML IV ONE; +LEVO5TAB12 PO; -METOCLOPRAMIDE INJ 10 MG/2 ML (REGLAN) ONE; +SERT50TA2 PO; -ceFAZolin 2 GM IV Premixed 50 ML ONE
--- NOTE | 2018-08-26 21:28 | ED EENT ---
History of Present Illness General Chief Complaint: Oral/Throat Problems Stated Complaint: ACHING, SORE THROAT, HEADACHE Nursing Triage Note: PT STATES SHE BEGAN TO HAVE A SORE/RAW FEELING IN HER THROAT THEN BEGAN TO EXPERIENCE GENERALIZED BODY ACHES. Source: patient History of Present Illness Date Seen by Provider: Aug 26, 2018 Time Seen by Provider: 21:13 Initial Comments C/O SORE THROAT SINCE LAST PM--STATES "IT ISN'T BAD, IT JUST FEELS RAW FROM DRAINAGE" STATES TODAY SHE STARTED HAVING SOME MILD BODY ACHES AND SLIGHT HEADACHE NO KNOWN FEVER NO COUGH NO SINUS PAIN NO RUNNY NOSE--JUST FEELS LIKE DRAINAGE DOWN BACK OF THROAT--HAS ALOT OF PROBLEMS WITH ALLERGIES, AND HAD BEEN GETTING ALLERGY SHOTS, BUT BECAME AND JUST DELIVERED 07/26/18, SO HAS NOT HAD ALLERGY SHOTS SINCE BECOMING AND HAS NOT BEEN TAKING ANY ALLERGY MEDICATION SINCE BECOMING AND NOT TAKEN ANY SINCE DELIVERY EITHER STATES SHE HAD GESTATIONAL DIABETES, AND WAS ON ORAL MEDICATION, BUT NOT BEEN MEDICATIONS SINCE DELIVERY FOR PLACENTA PREVIA PT DID HAVE WOUND DEHISCENCE FROM INCISION, AND WOUND HAS BEEN PACKED AND IS NOW ALMOST HEALED AND IS DOING FINE. NO INFECTION IN WOUND, AND HAS NOT HAD TO BE ON ANTIBIOTICS AT ANY TIME. STATES SHE HAS AN APPOINTMENT WITH DR. CORCORAN TOMORROW FOR RECHECK. BABY WAS DELIVERED AT 37 WEEKS AND HAS BEEN OUT OF NICU FOR 2 WEEKS--FEEDING AND APNEA PROBLEMS, AND DOES NOT WANT HIM TO GET SICK, SO SHE CAME IN TONIGHT. 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 CORCORAN Allergies and Home Medications Allergies Uncoded Allergies: NASAL SPRAYS (Adverse Reaction, Mild, HEADACHES, 07/24/18) Home Medications Docusate Sodium 100 Mg Capsule, 100 MG PO BID Prescribed by: BRIDGER CORCORAN on 07/27/18918 Hydrocodone Bit/Acetaminophen 1 Tab Tab, 1-2 TAB PO Q4H PRN for PAIN-MODERATE Prescribed by: BRIDGER CORCORAN on 07/27/18918 Ibuprofen 600 Mg Tablet, 600 MG PO Q6H Prescribed by: BRIDGER CORCORAN on 07/27/18918 Levocetirizine Dihydrochloride 5 Mg Tablet, 5 MG PO DAILY, (Reported) Montelukast Sodium 10 Mg Tablet, 10 MG PO DAILY, (Reported) Omeprazole Magnesium 20 Mg Tablet.dr, 20 MG PO HS, (Reported) [id number]/Iron Fumarate/FA/Dss 1 Each Tablet, 1 EACH PO DAILY, (Reported) Patient Home Medication List Home Medication List Reviewed: Yes Review of Systems Review of Systems Constitutional: No chills, No diaphoresis, No fever Eyes: No Symptoms Reported Ears: No Symptoms Reported Nose: see HPI, congestion Mouth: no symptoms reported Throat: see HPI, pain; denies hoarse, denies painful swallowing, denies difficulty with fluids Respiratory: no symptoms reported; No cough Cardiovascular: no symptoms reported Gastrointestinal: no symptoms reported Musculoskeletal: no symptoms reported Skin: see HPI Neurological: See HPI, Headache Hematologic/Lymphatic: No Symptoms Reported Immunological/Allergic: no symptoms reported Past Zrsiwmp-Scmcgh-Hatcaz Hx Patient Social History Alcohol Use: Denies Use Recreational Drug Use: No Smoking Status: Former Smoker Type Used: Cigarettes Former Smoker, Quit: Aug 17, 2014 2nd Hand Smoke Exposure: No Recent Foreign Travel: No Contact w/Someone Who Travel: No Recent Infectious Disease Expo: No Recent Hopitalizations: No Seasonal Allergies Seasonal Allergies: Yes Past Medical History Surgeries: Yes (FEET-SCREWS PLACED; X 1 ON 07/26/18; ) Adenoidectomy, Section, Orthopedic, Tonsillectomy Respiratory: No Cardiac: No Neurological: Yes Headaches /Migraines : No Last Menstrual Period: Oct 24, 2017 Hx : 1 Hx Para: 1 Hx Total # of Abortions (Sp): 0 Reproductive Disorders: No Female Reproductive Disorders: Denies Sexually Transmitted Disease: No HIV/AIDS: No Genitourinary: No Gastrointestinal: Yes Gastroesophageal Reflux Musculoskeletal: Yes Fractures Endocrine: Yes (GESTATIONAL DIABETES) HEENT: Yes (GLASSES) Loss of Vision: Bilateral Hearing Impairment: Denies Cancer: No Psychosocial: Yes Anxiety, Depression Integumentary: No Blood Disorders: No Adverse Reaction/Blood Tranf: No (N/A) Family Medical History Diabetes mellitus (grandfather) FH: heart disease (grandfather) No Pertinent Family Hx Physical Exam Vital Signs Vital Signs - First Documented 08/26/18 21:04 Temp 98.7 Pulse 84 Resp 20 B/P (MAP) 128/70 (89) Pulse Ox 98 O2 Delivery Room Air Height, Weight, BMI Height: 5'6.00" Weight: 285lbs. 0.6oz. 129.450516nb; 52.8 BMI Method:Stated General Appearance: WD/WN, no apparent distress, obese, other (DOES NOT APPEAR ILL) Eyes: bilateral eye normal inspection, bilateral eye PERRL, bilateral eye EOMI Ears: bilateral ear auricle normal, bilateral ear canal normal, bilateral ear TM normal Nose: No sinus tenderness; other (MILD NASAL CONGESTION AND CLEAR POST NASAL DRAINAGE. ) Mouth/Throat: other (MILD PHARYNGEAL ERYTHEMA. NO EXUDATE) Neck: non-tender, full range of motion, supple, normal inspection; No lymphadenopathy (R), No lymphadenopathy (L) Cardiovascular: regular rate, rhythm, no murmur Respiratory: normal breath sounds, no respiratory distress, no accessory muscle use Gastrointestinal: normal bowel sounds, non tender, soft, no organomegaly Neurologic/Psychiatric: house supervisor II-XII nml as tested, no motor/sensory deficits, alert, normal mood/affect, oriented x 3 Skin: normal color, warm/dry; No rash Progress/Results/Core Measures Results/Orders Lab Results Laboratory Tests Test 08/26/18 21:20 Range/Units Group A Streptococcus Screen NEGATIVE NEGATIVE Micro Results Microbiology 08/26/18 Influenza Types A,B Antigen (JEAN) - Final, Complete My Orders Orders - HERMELINDA GARNICA DO Rapid Strep A Screen (08/26/18 21:12) Influenza A And B Antigens (08/26/18 21:12) Amoxicillin Capsule (Polymox Capsule) (08/26/18 21:49) Vital Signs/I&O 08/26/18 21:04 Temp 98.7 Pulse 84 Resp 20 B/P (MAP) 128/70 (89) Pulse Ox 98 O2 Delivery Room Air Blood Pressure Mean: 89 Departure Impression Primary Impression: Pharyngitis Additional Impression: Post-nasal drainage Disposition: 01 HOME, SELF-CARE Condition: Stable Departure-Patient Inst. Referrals: [facility] [place] (PCP) Primary Care Physician BRIDGER CORCORAN DO (Family) Primary Care Physician Patient Instructions: Cough, Runny Nose, and the Common Cold (DC), Seasonal Allergies (DC), Sore Throat, Adult (DC) Add. Discharge Instructions: TYLENOL NEEDED FOR PAIN OR FEVER DISCUSS OVER THE COUNTER MEDICATIONS FOR NASAL DRAINAGE WITH DR. CORCORAN AND YOUR CRAPS MANAGER KEEP APPOINTMENT TOMORROW WITH DR. FENECH, AND WITH BABY'S CRAPS MANAGER ON SUNDAY All discharge instructions reviewed with patient and/or family. Voiced understanding. Scripts Amoxicillin (Amoxicillin) 875 Mg Tablet 875 MG PO BID for INFECTION, #20 TAB Prov: HERMELINDA GARNICA DO 08/26/18 HERMELINDA GARNICA DO Aug 26, 2018 21:28
[2018-08-26] MEDS ORDERED: AMOXICILLIN 500 MG (POLYMOX) CAP PO STA (21:49)
[2018-08-26] MEDS ORDERED: AMOX875T2 PO (21:54)
[2018-08-26 22:08] VITALS: BP 128/70
== END 2018-08-26 22:08 | disposition home or self-care (01) ==
LOC: EDUNIT# 20:57 → ER 20:59
DX: J02.9 Acute pharyngitis, unspecified (principal); R09.82 Postnasal drip; G43.909 Migraine, unspecified, not intractable, without status migrainosus; K21.9 Gastro-esophageal reflux disease without esophagitis; F41.9 Anxiety disorder, unspecified; F32.9 Major depressive disorder, single episode, unspecified; Z98.890 Other specified postprocedural states; Z82.49 Family history of ischemic heart disease and other diseases of the circulatory system; Z87.59 Personal history of other complications of pregnancy, childbirth and the puerperium; Z87.891 Personal history of nicotine dependence; Z90.89 Acquired absence of other organs
CPT/HCPCS: 87430; 87804

== ENCOUNTER 2019-01-19 18:14 | Observation (INO) | payer BC, MEDICAID ==
[2019-01-19] VITALS (8 sets, daily range): BP systolic 112–139; BP diastolic 60–91
[~2019-01-19] VITALS: Ht 167.6 cm; Wt 141.5 kg
[~2019-01-19 18:14] MED LIST changes: +AMOX875T2 PO
--- OUTSIDE RECORDS SUMMARY | 2019-01-19 18:19 | XMS REPORT | Continuity of Care Document ---
Author Organization Unknown Address Unknown Allergies Active Description Code Type Severity Reaction Onset Reported/Identified Relationship to Patient Clinical Status Yes NASAL SPRAYS NASAL SPRAYS Unknown N/A 08/25/2014 Yes NASAL SPRAYS NASAL SPRAYS Mild HEADACHES 07/24/2018 Medications There is no data. Problems Date Dx Coded Attending Type Code Diagnosis Diagnosed By 08/28/2012 Ot 466.0 08/28/2012 Ot 786.2 02/05/2013 MIMI MILIAN DO Ot 462 2013 YULIET SOLER MD Ot 530.81 2013 YULIET SOLER MD Ot 786.50 08/25/2014 Ot 339.42 08/25/2014 Ot 784.0 09/25/2014 TORRES SILVESTRE MD Ot 380.10 INFEC OTITIS EXTERNA NOS 09/25/2014 TORRES SILVESTRE MD Ot 382.9 OTITIS MEDIA NOS 09/25/2014 TORRES SILVESTRE MD Ot 388.70 OTALGIA NOS 09/21/2017 TORRES SILVESTRE MD Ot A64 UNSPECIFIED SEXUALLY TRANSMITTED DISEASE 09/21/2017 TORRES SILVESTRE MD Ot F32.9 MAJOR DEPRESSIVE DISORDER, SINGLE EPISOD 09/21/2017 TORRES SILVESTRE MD Ot K21.9 GASTRO-ESOPHAGEAL REFLUX DISEASE WITHOUT 09/21/2017 TORRES SILVESTRE MD Ot R10.30 LOWER ABDOMINAL PAIN, UNSPECIFIED 09/21/2017 TORRES SILVESTRE MD Ot Z87.891 PERSONAL HISTORY OF NICOTINE DEPENDENCE 09/21/2017 TORRES SILVESTRE MD Ot Z90.89 ACQUIRED ABSENCE OF OTHER ORGANS 04/16/2018 PAIGE DE LA VEGA Ot F32.9 MAJOR DEPRESSIVE DISORDER, SINGLE EPISOD 04/16/2018 PAIGE DE LA VEGA Ot F41.9 ANXIETY DISORDER, UNSPECIFIED 04/16/2018 PAIGE DE LA VEGA Ot H01.003 UNSPECIFIED BLEPHARITIS RIGHT EYE, UNSPE 04/16/2018 PAIGE DE LA VEGA Ot K21.9 GASTRO-ESOPHAGEAL REFLUX DISEASE WITHOUT 04/16/2018 PAIGE DE LA VEGA Ot O99.342 OTH MENTAL DISORDERS COMP , SEC 04/16/2018 PAIGE DE LA VEGA Ot O99.612 DISEASES OF THE DGSTV SYS COMP 04/16/2018 PAIGE DE LA VEGA Ot O99.89 OTH DISEASES AND CONDITIONS COMPL PREG/C 04/16/2018 PAIGE DE LA VEGA Ot Z88.8 ALLERGY STATUS TO OTH DRUG/MEDS/BIOL SUB 04/16/2018 PAIGE DE LA VEGA Ot Z90.89 ACQUIRED ABSENCE OF OTHER ORGANS 05/02/2018 Ot E66.01 MORBID ( SEVERE) OBESITY DUE TO EXCESS CA 05/02/2018 Ot Z04.3 ENCOUNTER FOR EXAM AND OBSERVATION FOLLO 05/02/2018 Ot Z3A.24 24 WEEKS GESTATION OF 05/04/2018 TONIA LEE MD Ot O23.592 INFECTION OTH PRT GENITL TRCT IN PREGNAN 05/04/2018 TONIA LEE MD Ot Z3A.24 24 WEEKS GESTATION OF 05/09/2018 Ot E66.01 MORBID ( SEVERE) OBESITY DUE TO EXCESS CA 05/09/2018 Ot Z04.3 ENCOUNTER FOR EXAM AND OBSERVATION FOLLO 05/09/2018 Ot Z3A.24 24 WEEKS GESTATION OF 05/09/2018 TNOIA LEE MD Ot O23.592 INFECTION OTH PRT GENITL TRCT IN PREGNAN 05/09/2018 TONIA LEE MD, Ot Z3A.24 24 WEEKS GESTATION OF 07/20/2018 BRIDGER CORCORAN DO Ot O99.89 OTH DISEASES AND CONDITIONS COMPL PREG/C 07/20/2018 BRIDGER CORCORAN DO Ot R10.9 UNSPECIFIED ABDOMINAL PAIN 07/20/2018 BRIDGER CORCORAN DO Ot Z3A.36 36 WEEKS GESTATION OF 07/22/2018 BRIDGER CORCORAN DO Ot O99.89 OTH DISEASES AND CONDITIONS COMPL PREG/C 07/22/2018 BRIDGER CORCORAN DO Ot R10.9 UNSPECIFIED ABDOMINAL PAIN 07/22/2018 BRIDGER CORCORAN DO Ot Z3A.36 36 WEEKS GESTATION OF 07/27/2018 BRIDGER CORCORAN DO S Ot D62 ACUTE POSTHEMORRHAGIC ANEMIA 07/27/2018 NILO MIGUEL BRIDGER Iqbal Ot E66.01 MORBID (SEVERE) OBESITY DUE TO EXCESS CA 07/27/2018 NILO MIGUEL BRIDGER Iqabl Ot O24.425 [facility] 07/27/2018 NILO MIGUEL BRIDGER Iqbal Ot O44.23 PARTIAL PLACENTA PREVIA NOS OR WITHOUT H 07/27/2018 NILO MIGUEL BRIDGER Iqbal Carlos O90.81 ANEMIA OF THE PUERPERIUM 07/27/2018 NILO MIGUEL BRIDGER Iqbal Ot O99.214 OBESITY COMPLICATING CHILDBIRTH 07/27/2018 NILO MIGUEL BRIDGER Iqbal Ot Z37.0 SINGLE LIVE 07/27/2018 NILO MIGUEL BRIDGER Iqbal Carlos Z3A.37 37 WEEKS GESTATION OF 07/27/2018 NILO MIGUEL BRIDGER Iqbal Carlos Z68.43 BODY MASS INDEX (BMI) 50-59.9, ADULT 08/26/2018 HERMELINDA GARNICA DO Ot F32.9 MAJOR DEPRESSIVE DISORDER, SINGLE EPISOD 08/26/2018 HERMELINDA GARNICA DO Ot F41.9 ANXIETY DISORDER, UNSPECIFIED 08/26/2018 HERMELINDA GARNICA DO Ot G43.909 MIGRAINE, UNSP, NOT INTRACTABLE, WITHOUT 08/26/2018 HERMELINDA GARNICA DO Ot J02.9 ACUTE PHARYNGITIS, UNSPECIFIED 08/26/2018 HERMELINDA GARNICA DO Ot K21.9 GASTRO-ESOPHAGEAL REFLUX DISEASE WITHOUT 08/26/2018 HERMELINDA GARNICA DO Ot R09.82 POSTNASAL DRIP 08/26/2018 HERMELINDA GARNICA DO Ot Z82.49 FAMILY HX OF ISCHEM HEART DIS AND OTH DI 08/26/2018 HERMELINDA GARNICA DO Ot Z87.59 PERSONAL HISTORY OF COMP OF PREG, CHLDBR 08/26/2018 HERMELINDA GARNICA DO, Ot Z87.891 PERSONAL HISTORY OF NICOTINE DEPENDENCE 08/26/2018 HERMELINDA GARNICA DO Ot Z90.89 ACQUIRED ABSENCE OF OTHER ORGANS 08/26/2018 HERMELINDA GARNICA DO Ot Z98.890 OTHER SPECIFIED POSTPROCEDURAL STATES Procedures Code Description Performed By Performed On [id number] EXTRACTION OF PRODUCTS OF CONCEPTION, 07/26/2018 Results Test Result Range Complete urinalysis with [...] human chorionic gonadotropin (hCG) measurement NEGATIVE NEGATIVE Chlamydia trachomatis DNA detection by probe and signal amplification method - 09/21/17 16:00 Chlamydia trachomatis DNA detection by probe and target amplification method Not Detected Not Detecte Urine Neisseria gonorrhoeae DNA assay - 09/21/17 16:00 Gonorrhea amp DNA-urine Not Detected Not Detecte Complete urinalysis with reflex to culture - 07/19/18 23:30 Urine color determination YELLOW NRG Urine clarity determination SLIGHTLY CLOUDY NRG Urine pH measurement by test strip 6 5-9 Specific gravity of urine by test strip 1.020 1.016- 1.022 Urine protein assay by test strip, semi-quantitative 3+ NEGATIVE Urine glucose detection by automated test strip 3+ NEGATIVE Erythrocytes detection in urine sediment by light microscopy 1+ NEGATIVE Urine ketones detection by automated test strip 1+ NEGATIVE Urine nitrite detection by test strip NEGATIVE NEGATIVE Urine total bilirubin detection by test strip NEGATIVE NEGATIVE Urine urobilinogen measurement by automated test strip (mass/volume) 1 mg/dL NORMAL Urine leukocyte esterase detection by dipstick 1+ NEGATIVE Automated urine sediment erythrocyte count by microscopy (number/high power field) [HPF] NRG Automated urine sediment leukocyte count by microscopy (number/high power field ) [HPF] NRG Bacteria detection in urine sediment by light microscopy LARGE NRG Squamous epithelial cells detection in urine sediment by light microscopy 10-25 NRG Crystals detection in urine sediment by light microscopy NONE NRG Casts detection in urine sediment by light microscopy NONE NRG Mucus detection in urine sediment by light microscopy LARGE NRG Complete urinalysis with reflex to culture NO NRG Bacterial urine culture - 07/19/18 23:30 Bacterial urine culture NG NRG Methicillin resistant Staphylococcus aureus (MRSA) screening culture - 13:00 Methicillin resistant Staphylococcus aureus (MRSA) screening culture NEG NRG Comprehensive metabolic panel - 07/26/18 06:10 Serum or plasma sodium measurement (moles/volume) 139 mmol/L 135-145 Serum or plasma potassium measurement (moles/volume) 4.0 mmol/L 3.6-5.0 Serum or plasma chloride measurement (moles/volume) 111 mmol/L 98-107 Carbon dioxide 20 mmol/L 21-32 Serum or plasma anion gap determination (moles/volume) 8 mmol/L 5-14 Serum or plasma urea nitrogen measurement (mass/volume) 9 mg/dL 7-18 Serum or plasma creatinine measurement (mass/volume) 0.58 mg/dL 0.60-1.30 Serum or plasma urea nitrogen/creatinine mass ratio 16 NRG Serum or plasma creatinine measurement with calculation of estimated glomerular filtration rate > NRG Serum or plasma glucose measurement (mass/volume) 104 mg/dL 70-105 Serum or plasma calcium measurement (mass/volume) 8.8 mg/dL 8.5-10.1 Serum or plasma total bilirubin measurement (mass/volume) 0.2 mg/dL 0.1-1.0 Serum or plasma alkaline phosphatase measurement (enzymatic activity/volume) 66 U/L 40-136 Serum or plasma aspartate aminotransferase measurement (enzymatic activity/ volume) 11 U/L 5-34 Serum or plasma alanine aminotransferase measurement (enzymatic activity/volume ) 9 U/L 0-55 Serum or plasma protein measurement (mass/volume) 6.0 g/dL 6.4-8.2 Serum or plasma albumin measurement (mass/volume) 3.1 g/dL 3.2-4.5 CALCIUM CORRECTED 9.5 mg/dL 8.5-10.1 Blood type T Indirect antibody screen panel - 07/26/18 06:10 ABO+Rh group OP NRG Transfusion band number [id number] NRG Blood group antibody screen NEGATIVE NRG Complete blood count (CBC) with automated white blood cell (WBC) differential - 07/27/18 05:54 Blood leukocytes automated count (number/volume) 8.2 10*3/uL 4.3-11.0 Blood erythrocytes automated count (number/volume) 3.35 10*6/uL 4.35-5.85 Venous blood hemoglobin measurement (mass/volume) 9.0 g/dL 11.5-16.0 Blood hematocrit (volume fraction) 28 % 35-52 Automated erythrocyte mean corpuscular volume 83 [foz_us] 80-99 Automated erythrocyte mean corpuscular hemoglobin (mass per erythrocyte) 27 pg 25-34 Automated erythrocyte mean corpuscular hemoglobin concentration measurement ( mass/volume) 33 g/dL 32-36 Automated erythrocyte distribution width ratio 14.6 % 10.0-14.5 Automated blood platelet count (count/volume) 200 10*3/uL 130-400 Automated blood platelet mean volume measurement 10.0 [foz_us] 7.4-10.4 Automated blood neutrophils/100 leukocytes 80 % 42-75 Automated blood lymphocytes/100 leukocytes 12 % 12-44 Blood monocytes/100 leukocytes 7 % 0-12 Automated blood eosinophils/100 leukocytes 1 % 0-10 Automated blood basophils/100 leukocytes 0 % 0-10 Blood neutrophils automated count (number/volume) 6.6 10*3 1.8-7.8 Blood lymphocytes automated count (number/volume) 1.0 10*3 1.0-4.0 Blood monocytes automated count (number/volume) 0.6 10*3 0.0-1.0 Automated eosinophil count 0.1 10*3/uL 0.0-0.3 Automated blood basophil count (count/volume) 0.0 10*3/uL 0.0-0.1 Capillary blood glucose measurement by glucometer (mass/volume) - 07/27/18 11: 37 Capillary blood glucose measurement by glucometer (mass/volume) 111 mg/dL 70-110 Streptococcus pyogenes antigen detection - 08/26/18 21:20 Streptococcus pyogenes antigen detection NEGATIVE NEGATIVE Influenza virus A and B antigen detection - 08/26/18 21:20 FLU RESULT NEGATIVE FOR INFLUENZA A AND B ANTIGENS BY IA NRG Bacterial throat culture - 08/26/18 21:20 Bacterial throat culture NBS NRG Encounters ACCT No. Visit Date/Time Discharge Status Pt. Type Provider Facility Loc./Unit Complaint [id number] 08/26/2018 20:59:00 08/26/2018 22:08:00 DIS Emergency HERMELINDA GARNICA DO [facility] ER ACHING, SORE THROAT, HEADACHE [id number] 07/26/2018 05:49:00 07/27/2018 13:20:00 DIS Inpatient BRIDGER CORCORAN DO [facility] LDRP PLACENTA PREVIA, GESTATIONAL DIABETES [id number] 07/24/2018 12:56:00 07/24/2018 14:09:00 DIS Outpatient BRIDGER CORCORAN DO [facility] PREOP PLACENTA PREVIA [id number] 07/19/2018 23:17:00 07/20/2018 00:40:00 DIS Outpatient BRIDGER CORCORAN DO [facility] WSo CONTRACTIONS [id number] 05/04/2018 21:14:00 05/04/2018 22:35:00 DIS Outpatient TONIA LEE MD [facility] WSo SPOTTING [id number] 04/16/2018 13:03:00 04/16/2018 23:59:59 CLS Emergency PAIGE DE LA VEGA [facility] ER RT EYE ISSUES [id number] 02/25/2018 10:00:00 02/25/2018 23:59:59 CLS Preadmit REBECCA LEE COMMISSION ASSOCIATE [facility] SLEEP SNORING, EDS [id number] 09/21/2017 15:39:00 09/21/2017 17:38:00 DIS Emergency TORRES SILVESTRE MD [facility] ER SEVERE ABD PAIN [id number] 09/25/2014 01:03:00 09/25/2014 01:48:00 DIS Emergency TORRES SILVESTRE MD [facility] ER RT EAR PAIN [id number] 2013 11:07:00 2013 14:15:00 DIS Emergency RYDER YOUNG, YULIET Rutledge [facility] ER [id number] 02/05/2013 15:21:00 02/05/2013 16:41:00 DIS Emergency MIMI MILIAN DO [facility] ER [id number] 05/01/2018 22:31:00 Document Registration [id number] 08/26/2014 14:56:00 Document Registration [id number] 08/28/2012 15:21:00 Document Registration [id number] 09/25/2014 01:03:53 ACT Document Registration
[2019-01-19] MEDS ORDERED: NS IV 1000 ML 1,000 ML IV SCH ×2 (18:30→19:30)
[2019-01-19] MEDS ORDERED: ANTACID SUSP 30 ML UDC (MYLANTA) PO ONE (18:30)
[2019-01-19] MEDS ORDERED: ONDANSETRON 4 MG/2 ML (SDV) Z0FRAN IVP ONE (18:30)
[2019-01-19] MEDS ORDERED: HYOSCYAMINE 0.125 MG (LEVSIN) TAB PO ONE (18:30)
[2019-01-19] MEDS ORDERED: LIDOCAINE 2% VISCOUS 15 ML UDC PO ONE (18:30)
--- NOTE | 2019-01-19 18:30 | ED Abdominal Pain ---
General Chief Complaint: Abdominal/GI Problems Stated Complaint: ABD PAIN/DIZZINESS Source of Information: Patient Exam Limitations: No Limitations History of Present Illness Date Seen by Provider: January 19, 2019 Time Seen by Provider: 18:28 Initial Comments ER with epigastric abdominal pain that radiates down to just above the umbilicus and to the left side. She's had about 6 episodes of loose diarrhea since yesterday. She's had nausea but no vomiting. No fevers or chills. No history of this. Timing/Duration: 2-3 Days Severity/Quality: Moderate Location: Epigastric Radiation: No Radiation Activities at Onset: None Associated Symptoms: Nausea/Vomiting Allergies and Home Medications Allergies Uncoded Allergies: NASAL SPRAYS (Adverse Reaction, Mild, HEADACHES, 07/24/18) Home Medications Montelukast Sodium 10 Mg Tablet, 10 MG PO DAILY, (Reported) Patient Home Medication List Home Medication List Reviewed: Yes Review of Systems Review of Systems Constitutional: see HPI; No chills, No fever EENTM: No Symptoms Reported Respiratory: No Symptoms Reported Cardiovascular: No Symptoms Reported Gastrointestinal: See HPI, Abdominal Pain, Diarrhea, Nausea Genitourinary: No Symptoms Reported Musculoskeletal: no symptoms reported Skin: no symptoms reported Psychiatric/Neurological: No Symptoms Reported Endocrine: No Symptoms Reported Past Thcuvpc-Iybtvt-Ebxwty Hx Patient Social History Alcohol Beverage of Choice: Wine Type Used: Cigarettes Former Smoker, Quit: Aug 17, 2014 2nd Hand Smoke Exposure: No Recent Foreign Travel: No Contact w/Someone Who Travel: No Recent Hopitalizations: No Seasonal Allergies Seasonal Allergies: Yes Past Medical History Surgeries: Yes (FEET-SCREWS PLACED; X 1 ON 07/26/18; ) Adenoidectomy, Section, Orthopedic, Tonsillectomy Respiratory: No Cardiac: No Neurological: Yes Headaches /Migraines Reproductive Disorders: No Female Reproductive Disorders: Denies Sexually Transmitted Disease: No HIV/AIDS: No Genitourinary: No Gastrointestinal: Yes Gastroesophageal Reflux Musculoskeletal: Yes Fractures Endocrine: Yes (GESTATIONAL DIABETES) HEENT: Yes (GLASSES) Loss of Vision: Bilateral Hearing Impairment: Denies Cancer: No Psychosocial: Yes Anxiety, Depression Integumentary: No Blood Disorders: No Adverse Reaction/Blood Tranf: No (N/A) Family Medical History Diabetes mellitus (grandfather) FH: heart disease (grandfather) No Pertinent Family Hx Physical Exam Vital Signs Vital Signs - First Documented 01/19/19 18:20 Temp 97.6 Pulse 92 Resp 18 B/P (MAP) 157/95 (115) Pulse Ox 95 Capillary Refill : Height/Weight/BMI Height: 5'6.00" Weight: 285lbs. 0.6oz. 129.107952an; 52.8 BMI Method:Stated General Appearance: WD/WN, no apparent distress, obese HEENT: PERRL/EOMI, normal ENT inspection Respiratory: no respiratory distress, no accessory muscle use Cardiovascular: regular rate, rhythm, no murmur Gastrointestinal: normal bowel sounds, soft, tenderness Extremities: normal range of motion, non-tender Neurologic/Psychiatric: alert, normal mood/affect, oriented x 3 Skin: normal color, warm/dry Progress/Results/Core Measures Results/Orders Lab Results Laboratory Tests Test 01/19/19 18:45 Range/Units White Blood Count 5.8 4.3-11.0 10^3/uL Red Blood Count 4.76 4.35-5.85 10^6/uL Hemoglobin 12.6 11.5-16.0 G/DL Hematocrit 38 35-52 % Mean Corpuscular Volume 79 L 80-99 FL Mean Corpuscular Hemoglobin 27 25-34 PG Mean Corpuscular Hemoglobin Concent 33 32-36 G/DL Red Cell Distribution Width 14.8 H 10.0-14.5 % Platelet Count 266 130-400 10^3/uL Mean Platelet Volume 9.7 7.4-10.4 FL Neutrophils (%) (Auto) 71 42-75 % Lymphocytes (%) (Auto) 17 12-44 % Monocytes (%) (Auto) 7 0-12 % Eosinophils (%) (Auto) 4 0-10 % Basophils (%) (Auto) 1 0-10 % Neutrophils # (Auto) 4.1 1.8-7.8 X 10^3 Lymphocytes # (Auto) 1.0 1.0-4.0 X 10^3 Monocytes # (Auto) 0.4 0.0-1.0 X 10^3 Eosinophils # (Auto) 0.2 0.0-0.3 10^3/uL Basophils # (Auto) 0.0 0.0-0.1 10^3/uL Urine Color YELLOW Urine Clarity CLEAR Urine pH 7 5-9 Urine Specific [place] 1.005 L 1.016-1.022 Urine Protein NEGATIVE NEGATIVE Urine Glucose (UA) 4+ H NEGATIVE Urine Ketones NEGATIVE NEGATIVE Urine Nitrite POSITIVE H NEGATIVE Urine Bilirubin NEGATIVE NEGATIVE Urine Urobilinogen NORMAL NORMAL MG/DL Urine Leukocyte Esterase NEGATIVE NEGATIVE Urine RBC (Auto) 1+ H NEGATIVE Urine RBC 2-5 H /HPF Urine WBC RARE /HPF Urine Squamous Epithelial Cells 0-2 /HPF Urine Crystals NONE /LPF Urine Bacteria TRACE /HPF Urine Casts NONE /LPF Urine Mucus NEGATIVE /LPF Urine Culture Indicated YES Sodium Level 129 L 135-145 MMOL/L Potassium Level 4.8 3.6-5.0 MMOL/L Chloride Level 95 L 98-107 MMOL/L Carbon Dioxide Level 20 L 21-32 MMOL/L Anion Gap 14 5-14 MMOL/L Blood Urea Nitrogen 8 7-18 MG/DL Creatinine 1.08 0.60-1.30 MG/DL Estimat Glomerular Filtration Rate 58 BUN/Creatinine Ratio 7 Glucose Level 734 *H 70-105 MG/DL Calcium Level 9.1 8.5-10.1 MG/DL Corrected Calcium 8.9 8.5-10.1 MG/DL Total Bilirubin 0.6 0.1-1.0 MG/DL Aspartate Amino Transf (AST/SGOT) 93 H 5-34 U/L Alanine Aminotransferase (ALT/SGPT) 76 H 0-55 U/L Alkaline Phosphatase 103 40-136 U/L Total Protein 7.2 6.4-8.2 GM/DL Albumin 4.3 3.2-4.5 GM/DL Lipase 33 8-78 U/L Serum Test, Qualitative NEGATIVE NEGATIVE My Orders Orders - LOPEZ ESPANA APRN Cbc With Automated Diff (01/19/19 18:24) Hcg,Qualitative Serum (01/19/19 18:24) Ua Culture If Indicated (01/19/19 18:24) Lipase (01/19/19 18:24) Comprehensive Metabolic Panel (01/19/19 18:24) Ed Iv/Invasive Line Start (01/19/19 18:24) Hyoscyamine Sl Tablet (Levsin Sl Tablet) (01/19/19 18:30) Ns Iv 1000 Ml (Sodium Chloride 0.9%) (01/19/19 18:30) Ondansetron Injection (Zofran Injectio (01/19/19 18:30) Lidocaine 2% Viscous 15 Ml (Xylocaine Vi (01/19/19 18:30) Antacid Suspension (Mylanta Suspension (01/19/19 18:30) Urine Culture (01/19/19 18:45) Ns Iv 1000 Ml (Sodium Chloride 0.9%) (01/19/19 19:30) Hemoglobin A1c (01/19/19 19:18) Beta Hydroxybutyrate (01/19/19 19:19) Insulin (Regular) Human (Humulin R (Per (01/19/19 19:30) Medications Given in ED Current Medications Medications Dose Ordered Sig/Nas Route Start Time Stop Time Status Last Admin Dose Admin Al Hydrox/Mg Hydrox/Simethicone 30 ml ONCE ONCE PO 01/19/19 18:30 01/19/19 18:31 DC 01/19/19 18:52 30 ML Hyoscyamine Sulfate 0.25 mg ONCE ONCE PO 01/19/19 18:30 01/19/19 18:31 DC 01/19/19 18:50 0.25 MG Lidocaine HCl 10 ml ONCE ONCE PO 01/19/19 18:30 01/19/19 18:31 DC 01/19/19 18:53 10 ML Ondansetron HCl 8 mg ONCE ONCE IVP 01/19/19 18:30 01/19/19 18:31 DC 01/19/19 18:50 8 MG Vital Signs/I&O 01/19/19 18:20 Temp 97.6 Pulse 92 Resp 18 B/P (MAP) 157/95 (115) Pulse Ox 95 Departure Communication (Admissions) Time/Spoke to Admitting Phy: 19:[address] Luna, will admit, insulin drip. Impression Primary Impression: HHNC (hyperglycemic hyperosmolar nonketotic coma) Disposition: 01 HOME, SELF-CARE Condition: Stable Admissions Decision to Admit Reason: Admit from ER (General) Decision to Admit/Date: January 19, 2019 Time/Decision to Admit Time: 19:34 Departure-Patient Inst. Referrals: [facility] (PCP) Primary Care Physician ANGELA GODFREY (Family) Primary Care Physician LOPEZ ESPANA APRN January 19, 2019 18:30
[2019-01-19] MEDS ORDERED: ESCI20TA45 PO (18:34)
[2019-01-19] MEDS ORDERED: BUSP7.5T5 PO (18:34)
[2019-01-19 18:54] LABS: BILIRUBIN,URINE NEGATIVE (NEGATIVE); CLARITY,URINE CLEAR; COLOR,URINE YELLOW; GLUCOSE, URINE (UA) 4+ (NEGATIVE); KETONES,URINE NEGATIVE (NEGATIVE); LEUKOCYTE ESTERASE ,URINE NEGATIVE (NEGATIVE); NITRITE,URINE POSITIVE (NEGATIVE); PH,URINE 7 (5-9); PROTEIN,URINE NEGATIVE (NEGATIVE); UROBILINOGEN,URINE NORMAL (NORMAL)
[2019-01-19 18:55] LABS: BASOPHILS % (AUTO) 1 % (0-10); EOSINOPHILS # (AUTO) 0.2 10^3/uL (0.0-0.3); EOSINOPHILS % (AUTO) 4 % (0-10); HEMATOCRIT 38 % (35-52); HEMOGLOBIN 12.6 G/DL (11.5-16.0); LYMPHOCYTES % (AUTO) 17 % (12-44); MEAN CORPUSCULAR HEMOGLOBIN 27 PG (25-34); MEAN CORPUSCULAR HGB CONC 33 G/DL (32-36); MEAN CORPUSCULAR VOLUME 79 FL (80-99); MEAN PLATELET VOLUME 9.7 FL (7.4-10.4); MONOCYTES # (AUTO) 0.4 X 10^3 (0.0-1.0); MONOCYTES % (AUTO) 7 % (0-12); NEUTROPHILS # (AUTO) 4.1 X 10^3 (1.8-7.8); NEUTROPHILS % (AUTO) 71 % (42-75); PLATELET COUNT 266 10^3/uL (130-400); RED CELL DISTRIBUTION WIDTH 14.8 % (10.0-14.5); WHITE BLOOD COUNT 5.8 10^3/uL (4.3-11.0)
--- NOTE | 2019-01-19 19:00 | NUR ---
REPORT TO JEANIE DOMINGUEZ
[2019-01-19 19:12] LABS: ALBUMIN 4.3 GM/DL (3.2-4.5); BILIRUBIN,TOTAL 0.6 MG/DL (0.1-1.0); CALCIUM 9.1 MG/DL (8.5-10.1); CREATININE SERUM 1.08 MG/DL (0.60-1.30); POTASSIUM 4.8 MMOL/L (3.6-5.0); TOTAL PROTEIN 7.2 GM/DL (6.4-8.2)
[2019-01-19 19:14] LABS: BACTERIA,URINE TRACE /HPF; SQUAMOUS EPITHELIAL CELL,UR 0-2 /HPF; WBC,URINE RARE /HPF
[2019-01-19] MEDS ORDERED: inSUlin (REGULAR) HUMAN 1 UNIT/0.01 ML (CHARGE PER UNIT) IV ONE (19:30)
[2019-01-19] MEDS ORDERED: WATER (STERILE) FOR INJECTION 10 ML ONE (19:39)
[2019-01-19] MEDS ORDERED: cefTRIAXone 1,000 MG IV (ROCEPHIN) VIAL ONE (19:39)
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
[2019-01-19] MEDS ORDERED: cefTRIAXone FOR IV USE 1,000 MG in WATER (STERILE) FOR INJECTION 10 ML IV ONE (19:45)
--- NOTE | 2019-01-19 20:10 | NUR ---
KWAME ALY admitted to room CU6-1, with an admitting diagnosis of HHNDK , on 01/19/19 from ED via , accompanied by .KWAME ALY introduced to surroundings, call light, bed controls, phone, TV, temperature control, lights, meal times, smoking policy, visitor policy, side rail policy, bathrooms and showers. Patient Rights given to patient in the handbook.KWAME ALY verbalizes understanding that [facility] is not responsible for the loss or damage to any personal effects or valuables that are kept in the patients possession during their hospitalization. The following Patient Care Plans were discussed with the : Discharge Planning, ,, and . KWAME ALY verbalizes understanding of Interdisciplinary Patient Education. Patient and/or family were informed about the Rapid Response Team and its purpose.
[2019-01-19] MEDS ORDERED: NS IV 1000 ML X 1 WIDE OPEN IV ONE (20:30)
[2019-01-19] MEDS ORDERED: REGULAR inSUlin DRIP 250 UNITS/NS 250 ML IV SCH ×2 (20:30)
[2019-01-19] MEDS ORDERED: NORMAL SALINE 250 ML ONE (20:33)
[2019-01-19] MEDS ORDERED: inSUlin (REGULAR) HUMAN 1 UNIT/0.01 ML (CHARGE PER UNIT) ONE (20:34)
[2019-01-19] MEDS: 1/2 NS IV SOLUTION 1,000 ML IV SCH (20:55)
[2019-01-19] MEDS: POTASSIUM CL 10MEQ/50ML IVPB 50 ML IV SCH ×2 (20:55→23:02)
[2019-01-19 20:57] LABS: BUN/CREATININE RATIO 8; CALCIUM 9.3 MG/DL (8.5-10.1); CARBON DIOXIDE 24 MMOL/L (21-32); CHLORIDE 100 MMOL/L (98-107); CREATININE SERUM 0.93 MG/DL (0.60-1.30); GFR ESTIMATED > 60; POTASSIUM 4.6 MMOL/L (3.6-5.0); SODIUM 134 MMOL/L (135-145)
[2019-01-19 20:59] LABS: GLUCOSE 508 MG/DL (70-105)
[2019-01-19] MEDS: DEXTROSE 10% IV SOLUTION 1,000 ML IV SCH (21:21)
[2019-01-19] MEDS: D5 1/2 NS IV 1,000 ML IV SCH (21:21)
[2019-01-19] MEDS: ENOXAPARIN 60 MG/0.6 ML (LOVENOX) SYR SC SCH (21:58)
[2019-01-20] VITALS (12 sets, daily range): BP systolic 102–164; BP diastolic 69–109
[2019-01-20 00:52] LABS: BUN/CREATININE RATIO 9; CALCIUM 9.1 MG/DL (8.5-10.1); CARBON DIOXIDE 23 MMOL/L (21-32); CHLORIDE 102 MMOL/L (98-107); CREATININE SERUM 0.75 MG/DL (0.60-1.30); GFR ESTIMATED > 60; GLUCOSE 280 MG/DL (70-105); POTASSIUM 4.3 MMOL/L (3.6-5.0); SODIUM 136 MMOL/L (135-145)
[2019-01-20] MEDS: 1/2 NS IV SOLUTION 1,000 ML IV SCH ×3 (01:01→09:20)
[2019-01-20] MEDS: POTASSIUM CL 10MEQ/50ML IVPB 50 ML IV SCH ×6 (01:02→10:18)
[2019-01-20] MEDS: D5 1/2 NS IV 1,000 ML IV SCH ×4 (01:02→10:17)
[2019-01-20 04:00] LABS: BASOPHILS % (AUTO) 0 % (0-10); EOSINOPHILS # (AUTO) 0.2 10^3/uL (0.0-0.3); EOSINOPHILS % (AUTO) 4 % (0-10); HEMATOCRIT 38 % (35-52); HEMOGLOBIN 12.4 G/DL (11.5-16.0); LYMPHOCYTES # (AUTO) 1.6 X 10^3 (1.0-4.0); LYMPHOCYTES % (AUTO) 26 % (12-44); MEAN CORPUSCULAR HEMOGLOBIN 26 PG (25-34); MEAN CORPUSCULAR HGB CONC 33 G/DL (32-36); MEAN CORPUSCULAR VOLUME 80 FL (80-99); MEAN PLATELET VOLUME 9.4 FL (7.4-10.4); MONOCYTES # (AUTO) 0.5 X 10^3 (0.0-1.0); MONOCYTES % (AUTO) 8 % (0-12); NEUTROPHILS # (AUTO) 3.8 X 10^3 (1.8-7.8); NEUTROPHILS % (AUTO) 62 % (42-75); PLATELET COUNT 255 10^3/uL (130-400); RED CELL DISTRIBUTION WIDTH 14.8 % (10.0-14.5); WHITE BLOOD COUNT 6.1 10^3/uL (4.3-11.0)
[2019-01-20 04:26] LABS: ALANINE AMINOTRANSFERASE 68 U/L (0-55); ALBUMIN 4.2 GM/DL (3.2-4.5); ALKALINE PHOSPHATASE 98 U/L (40-136); BILIRUBIN,TOTAL 0.4 MG/DL (0.1-1.0); BUN/CREATININE RATIO 10; CALCIUM 9.2 MG/DL (8.5-10.1); CARBON DIOXIDE 23 MMOL/L (21-32); CHLORIDE 103 MMOL/L (98-107); CREATININE SERUM 0.73 MG/DL (0.60-1.30); GFR ESTIMATED > 60; GLUCOSE 201 MG/DL (70-105); MAGNESIUM 2.4 MG/DL (1.8-2.4); PHOSPHORUS 2.9 MG/DL (2.3-4.7); POTASSIUM 4.1 MMOL/L (3.6-5.0); SODIUM 137 MMOL/L (135-145)
[2019-01-20] MEDS: DEXTROSE 10% IV SOLUTION 1,000 ML IV SCH (04:37)
[2019-01-20] MEDS ORDERED: MAGNESIUM 1 GM/100 ML IVPB 100 ML IV SCH (06:00)
[2019-01-20] MEDS ORDERED: POTASSIUM CL 10MEQ/50ML IVPB 50 ML IV SCH (06:00)
[2019-01-20] MEDS ORDERED: KCL 20 MEQ TAB (K-DUR) PO SCH (06:00)
--- NOTE | 2019-01-20 07:45 | Diagnostic Imaging Report ---
INDICATION: 33-year-old inpatient, ICU management. TECHNIQUE: Single view chest 3:27 AM. CORRELATION STUDY: None FINDINGS: The heart size, mediastinal configuration and pulmonary vascularity are within normal limits. Lung franks generally clear. May be minimal perihilar atelectasis present. IMPRESSION: 1. Minimal perihilar areas of atelectasis. Dictated by: Dictated on workstation # [id number]
[2019-01-20] MEDS: ENOXAPARIN 60 MG/0.6 ML (LOVENOX) SYR SC SCH (08:12)
[2019-01-20] MEDS: NICOTINE 21 MG (NICODERM) PATCH TD SCH ×3 (08:12→09:19)
[2019-01-20] MEDS ORDERED: ONDA4TAB10 PO (09:17)
[2019-01-20] MEDS ORDERED: CYCL10TA9 PO (09:17)
[2019-01-20] MEDS ORDERED: MONT10TA24 PO (09:17)
--- NOTE | 2019-01-20 09:20 | NUR ---
SPOKE WITH THE PATIENT ABOUT HER MEDICATIONS. WE WENT OVER THE EXT MED HX AND SHE VERIFIED HOW SHE TAKES THEM. SHE STATES HER LEXAPRO DOSE WAS INCREASED TO THE 20MG. SHE STATES SHE IS NO LONGER USING THE ZOFRAN, THAT WAS A SHORT TERM THING THAT HAS RESOLVED. SHE DOES NOT TAKE ANYTHING OTC.
[2019-01-20 09:33] LABS: BUN/CREATININE RATIO 8; CALCIUM 8.8 MG/DL (8.5-10.1); CARBON DIOXIDE 26 MMOL/L (21-32); CHLORIDE 103 MMOL/L (98-107); CREATININE SERUM 0.72 MG/DL (0.60-1.30); GFR ESTIMATED > 60; GLUCOSE 228 MG/DL (70-105); POTASSIUM 4.3 MMOL/L (3.6-5.0); SODIUM 135 MMOL/L (135-145)
[2019-01-20] MEDS ORDERED: inSUlin ASPART (NovoLOG) 1 UNIT/0.01 ML (CHARGE PER UNIT) ONE (10:39)
[2019-01-20] MEDS ORDERED: INSU100I14 SQ (10:42)
[2019-01-20] MEDS ORDERED: PEN-53 MC (10:42)
--- NOTE | 2019-01-20 10:43 | Short Stay Summary-Hospitalist ---
History of Present Illness HPI/Chief Complaint Chief complaint: High sugars HPI: This is a 33yoWF with gestational diabetes that presented to the ER with complaints of feeling ill and found to have significantly elevated blood sugars hyperosmolar nonketotic coma. She was placed on aggressive IV fluids, insulin drip and she resulted in improved blood sugars and overall is so back to baseline she will be discharged today with close follow up with Teena Flynn after I started her on Novolog 10 units before meals and that will be up to Teena Flynn to alter the dose on that. Source: patient Exam Limitations: no limitations Date Seen 01/20/19 Time Seen by a Provider: 09:00 Attending Physician Nara Luna MD [facility] Referring Physician Date of Admission January 19, 2019 at 19:31 Home Medications & Allergies Home Medications Reviewed patient Home Medication Reconciliation performed by pharmacy medication reconciliations photonics technician and/or nursing. Patients Allergies have been reviewed. Allergies Allergies Uncoded Allergies NASAL SPRAYS ( Adverse Reaction, Mild, HEADACHES, 07/24/18) Past Zrbhqwd-Notqvn-Leifxv Hx Past Med/Social Hx: Reviewed Nursing Past Med/Soc Hx, Reviewed and Corrections made Patient Social History Alcohol Use: Denies Use Number of Drinks Today: Alcohol Beverage of Choice: Wine Recreational Drug Use: No Smoking Status: Former Smoker Former Smoker, Quit: Aug 17, 2014 Type Used: Cigarettes 2nd Hand Smoke Exposure: No Recent Foreign Travel: No Contact w/other who traveled: No Recent Hopitalizations: No Recent Infectious Disease Expo: No Seasonal Allergies Seasonal Allergies: Yes Past Medical History Surgeries: Adenoidectomy, Section, Orthopedic, Tonsillectomy Neurological: Headaches /Migraines : No Reproductive: No Sexually Transmitted Disease: No HIV/AIDS: No Female Reproductive Disorders: Denies Gastrointestinal: Gastroesophageal Reflux Musculoskeletal: Fractures Endocrine: Diabetes, Non-Insulin dep Loss of Vision: Bilateral Hearing Impairment: Denies Psychosocial: Anxiety, Depression History of Blood Disorders: No Adverse Reaction to Blood [place]: No (N/A) Family History Diabetes mellitus (grandfather) FH: heart disease (grandfather) No Pertinent Family Hx Review of Systems Constitutional: see HPI EENTM: no symptoms reported Respiratory: no symptoms reported Cardiovascular: no symptoms reported Gastrointestinal: no symptoms reported Genitourinary: no symptoms reported Musculoskeletal: no symptoms reported Skin: no symptoms reported Psychiatric/Neurological: No Symptoms Reported All Other Systems Reviewed Negative Unless Noted: Yes Physical Exam Physical Exam Vital Signs Vital Signs - First Documented 01/19/19 01/19/19 18:20 20:08 Temp 97.6 Pulse 92 Resp 18 B/P (MAP) 157/95 (115) Pulse Ox 95 O2 Delivery Room Air Capillary Refill : Less Than 3 Seconds Height, Weight, BMI Height: 5'6.00" Weight: 312lbs. 0.0oz. 141.402354lz; 50.0 BMI Method:Stated General Appearance: No Apparent Distress, WD/WN, Chronically ill, Obese Eyes: Bilateral Eye Normal Inspection, Bilateral Eye PERRL HEENT: PERRL/EOMI, Normal ENT Inspection, Pharynx Normal Neck: Full Range of Motion, Normal Inspection, Non Tender, Supple, Carotid Bruit Respiratory: Chest Non Tender, Lungs Clear, Normal Breath Sounds, No Accessory Muscle Use, No Respiratory Distress Cardiovascular: Regular Rate, Rhythm, No Edema, No Gallop, No JVD, No Murmur, Normal Peripheral Pulses Gastrointestinal: Normal Bowel Sounds, No Organomegaly, No Pulsatile Mass, Non Tender, Soft Back: Normal Inspection, No CVA Tenderness, No Vertebral Tenderness Extremity: Normal Capillary Refill, Normal Inspection, Normal Range of Motion, Non Tender, No Calf Tenderness, No Pedal Edema Neurologic/Psychiatric: Alert, Oriented x3, No Motor/Sensory Deficits, Normal Mood/Affect Skin: Normal Color, Warm/Dry Lymphatic: No Adenopathy Results Results/Procedures Labs Laboratory Tests 01/19/19 18:45 01/19/19 20:39 01/20/19 00:30 01/20/19 03:45 01/20/19 09:10 Patient resulted labs reviewed. Short Stay Diagnosis Discharge Diagnosis-Short Stay Admission Diagnosis HHNKS Obesity Final Discharge Diagnosis HHNKS Obesity Conclusion Plan Plan: Insulin Monitor closely Diagnosis/Problems Diagnosis/Problems (1) Hyperosmolar non-ketotic state in patient with type 2 diabetes mellitus Status: Acute Clinical Quality Measures DVT/VTE Risk/Contraindication: Risk Factor Score Per Nursin RFS Level Per Nursing on Admit: 3=High MADISON VELASQUEZ DO January 20, 2019 10:43
--- NOTE | 2019-01-20 11:18 | NUR ---
Updates provided to pt and mother at bedside. Pt is currently awaiting ANGELICA Chaney for Insulin education and diabetic education information prior to discharge. Pt agreed to wait for appropriate education prior to discharge.
--- NOTE | 2019-01-20 13:10 | NUR ---
Pt discharged at this time. Diabetic education provided to pt from Soren Chaney RN. Pt currently does not have any questions about discharge instructions at this time. Pt escorted by staff to personal car for discharge.
== END 2019-01-20 13:10 | disposition home or self-care (01) ==
LOC: EDUNIT# 18:14 → ER 18:15 → ICU 19:31
PROVIDERS: ADMIT Internal Medicine; ATTEND Internal Medicine
DX: E11.00 Type 2 diabetes mellitus with hyperosmolarity without nonketotic hyperglycemic-hyperosmolar coma (NKHHC) (principal); K21.9 Gastro-esophageal reflux disease without esophagitis; F32.9 Major depressive disorder, single episode, unspecified; F41.9 Anxiety disorder, unspecified; Z87.891 Personal history of nicotine dependence; Z79.4 Long term (current) use of insulin
CPT/HCPCS: 36415; 71045; 80048; 80053; 81000; 82010; 82962; 83036; 83690; 83735; 84100; 84703; 85025; 87081; 87088; 96361; 96374; 96375; G0378

== ENCOUNTER 2019-11-15 19:03 | Emergency (ER) | payer SELFPAY ==
[~2019-11-15] VITALS: Ht 167 cm; Wt 131.6 kg
[~2019-11-15 19:03] MED LIST changes: +BUSP7.5T5 PO; +CYCL10TA9 PO; +ESCI20TA45 PO; +GLYB1TAB PO; +INSU100I14 SQ; +MONT10TA26 PO; +ONDA-105 PO; +PEN-53 MC; -[UNRECOGNIZED DRUG - CODE] PO
[2019-11-15] MEDS ORDERED: NS IV 1000 ML 1,000 ML ONE (19:10)
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
[2019-11-15] MEDS ORDERED: KETOROLAC 30 MG/ML VIAL IVP ONE (19:15)
[2019-11-15] MEDS ORDERED: NS IV 1000 ML 1,000 ML IV SCH (19:15)
[2019-11-15] MEDS ORDERED: fentaNYL INJECTION 100 MCG/2 ML AMP IVP ONE (19:15)
[2019-11-15] MEDS ORDERED: CEPHALEXIN 250 MG (KEFLEX) CAP PO ONE (19:15)
[2019-11-15] MEDS ORDERED: HYDR-4226 PO (19:21)
[2019-11-15] MEDS ORDERED: CEPH-507 PO (19:21)
[2019-11-15] MEDS ORDERED: RX-HYDROCODONE/APAP 5/325 MG #4 TAB PK PO PRN (19:30)
[2019-11-15] MEDS ORDERED: HYDROmorphone 2 MG/ML VIAL (DILAUDID) IV ONE ×2 (19:30→20:00)
[2019-11-15] MEDS ORDERED: TETANUS,DIPTH,PERTUSS P/F (BOOSTRIX) 0.5 ML VIAL IM ONE (20:00)
[2019-11-15 20:04] VITALS: BP 120/65
[2019-11-15] MEDS ORDERED: BACI30OI7 TP (20:05)
[2019-11-15] MEDS ORDERED: BACITRACIN OINTMENT 28 GM TUBE TOP SCH (21:00)
== END 2019-11-15 20:09 | disposition home or self-care (01) ==
LOC: EDUNIT# 19:03 → ER 19:05
DX: T23.241A Burn of second degree of multiple right fingers (nail), including thumb, initial encounter (principal); T23.242A Burn of second degree of multiple left fingers (nail), including thumb, initial encounter; T23.291A Burn of second degree of multiple sites of right wrist and hand, initial encounter; T23.292A Burn of second degree of multiple sites of left wrist and hand, initial encounter; T21.21XA Burn of second degree of chest wall, initial encounter; T20.12XA Burn of first degree of lip(s), initial encounter; T26.31XA Burns of other specified parts of right eye and adnexa, initial encounter; T26.32XA Burns of other specified parts of left eye and adnexa, initial encounter; T31.0 Burns involving less than 10% of body surface; E11.9 Type 2 diabetes mellitus without complications; F41.9 Anxiety disorder, unspecified; F32.9 Major depressive disorder, single episode, unspecified; Z79.4 Long term (current) use of insulin; Z87.891 Personal history of nicotine dependence; Z82.49 Family history of ischemic heart disease and other diseases of the circulatory system; X08.8XXA Exposure to other specified smoke, fire and flames, initial encounter
CPT/HCPCS: 82962; 90471; 90715; 96361; 96374; 96375

== ENCOUNTER 2021-11-28 18:57 | Emergency (ER) | payer MEDICAID ==
[~2021-11-28] VITALS: Ht 167 cm; Wt 133.8 kg
[~2021-11-28 18:57] MED LIST changes: +BACI30OI7 TP; +CEPH-507 PO; +CYCL10TA25 PO; -CYCL10TA9 PO; +ESCI20TA39 PO; -ESCI20TA45 PO; +HYDR-4226 PO; +MONT-40 PO; -MONT10TA26 PO
[2021-11-28 18:59] VITALS: BP 112/81
[2021-11-28 19:28] LABS: BASOPHILS # (AUTO) 0.1 10^3/uL (0.0-0.1); BASOPHILS % (AUTO) 1 % (0-10); EOSINOPHILS # (AUTO) 0.2 10^3/uL (0.0-0.3); EOSINOPHILS % (AUTO) 3 % (0-10); HEMATOCRIT 42 % (35-52); HEMOGLOBIN 13.9 g/dL (11.5-16.0); LYMPHOCYTES # (AUTO) 1.6 10^3/uL (1.0-4.0); LYMPHOCYTES % (AUTO) 21 % (12-44); MEAN CORPUSCULAR HEMOGLOBIN 28 pg (25-34); MEAN CORPUSCULAR HGB CONC 33 g/dL (32-36); MEAN CORPUSCULAR VOLUME 87 fL (80-99); MEAN PLATELET VOLUME 9.3 fL (9.0-12.2); MONOCYTES # (AUTO) 0.6 10^3/uL (0.0-1.0); MONOCYTES % (AUTO) 8 % (0-12); NEUTROPHILS # (AUTO) 5.1 10^3/uL (1.8-7.8); NEUTROPHILS % (AUTO) 67 % (42-75); PLATELET COUNT 257 10^3/uL (130-400); WHITE BLOOD COUNT 7.6 10^3/uL (4.3-11.0)
[2021-11-28 19:28] LABS: BILIRUBIN,URINE NEGATIVE (NEGATIVE); CLARITY,URINE CLEAR; COLOR,URINE YELLOW; GLUCOSE, URINE (UA) NEGATIVE (NEGATIVE); KETONES,URINE NEGATIVE (NEGATIVE); LEUKOCYTE ESTERASE ,URINE NEGATIVE (NEGATIVE); NITRITE,URINE NEGATIVE (NEGATIVE); PROTEIN,URINE NEGATIVE (NEGATIVE)
[2021-11-28] MEDS ORDERED: KETOROLAC 30 MG/ML VIAL IVP STA (19:34)
[2021-11-28 19:38] LABS: BACTERIA,URINE TRACE /HPF; RBC,URINE 0-2 /HPF; WBC,URINE 0-2 /HPF
[2021-11-28 19:40] LABS: ALBUMIN 4.5 GM/DL (3.2-4.5); BILIRUBIN,TOTAL 0.9 MG/DL (0.1-1.0); CALCIUM 9.6 MG/DL (8.5-10.1); CREATININE SERUM 0.69 MG/DL (0.60-1.30); MAGNESIUM 1.7 MG/DL (1.6-2.4); POTASSIUM 4.2 MMOL/L (3.6-5.0); TOTAL PROTEIN 7.6 GM/DL (6.4-8.2)
[2021-11-28 19:41] LABS: AMPHETAMINE SCREEN, URINE NEGATIVE (NEGATIVE); BARBITURATE SCREEN URINE NEGATIVE (NEGATIVE); BENZODIAZEPINES SCREEN URINE NEGATIVE (NEGATIVE); CANNABINOID SCREEN, URINE NEGATIVE (NEGATIVE); COCAINE SCREEN URINE NEGATIVE (NEGATIVE); METHADONE STAT NEGATIVE (NEGATIVE); METHAMPHETAMINE SCREEN URINE S NEGATIVE (NEGATIVE); OPIATE SCREEN URINE NEGATIVE (NEGATIVE); OXYCODONE STAT NEGATIVE (NEGATIVE); PROPOXYPHENE STAT NEGATIVE (NEGATIVE); TRICYCLIC ANTIDEPRESSANTS SCRE NEGATIVE (NEGATIVE)
[2021-11-28] MEDS ORDERED: PANTOPRAZOLE 40 MG (PROTONIX) VIAL IV ONE (19:45)
[2021-11-28] MEDS ORDERED: ONDANSETRON 4 MG/2 ML (SDV) Z0FRAN IVP ONE (19:45)
[2021-11-28] MEDS ORDERED: NS IV 1000 ML 1,000 ML IV SCH (19:45)
--- NOTE | 2021-11-28 19:59 | ED Abdominal Pain ---
General Chief Complaint: Abdominal/GI Problems Stated Complaint: ABD PAIN Nursing Triage Note: PATIENT AMBULATORY TO ER WITH C/O BILATERAL UPPER QUADRANT ABDOMINAL PAIN X 1 MONTH WITH WORSENING THIS AM UPON WAKING UP. SHE HAS BEEN NAUSEATED BUT HAS NOT VOMITED. SHE DID HAVE AN ABDOMINAL ULTRASOUND AND IS SCHEDULED FOR A HIDA SCAN NEXT SUNDAY. PATIENT STATES THE PAIN RADIATES INTO BILATERAL LOWER BACK. Source of Information: Patient History of Present Illness Date Seen by Provider: Nov 28, 2021 Time Seen by Provider: 19:20 Initial Comments PT ARRIVES VIA POV FROM HOME C/O ABDOMINAL PAIN FOR OVER 1 1/2 MONTHS PAIN IS ALL ACROSS UPPER ABDOMEN, GOES DOWN BOTH LATERAL SIDES OF ABDOMEN AND AROUND TO LOWER BACK HAS HAD NAUSEA, NO VOMITING PT NORMALLY HAS MULTIPLE LOOSE STOOLS A DAY, AND HAS HAD 3 NORMAL LOOSE STOOLS TODAY. NO BLACK/BLOODY/TARRY STOOLS NO FEVER NO URINARY SYMPTOMS AND VOIDING A NORMAL AMOUNT PAIN IS WORSENED BY EATING OR DRINKING ATE PIZZA AT 11:00 AM TODAY, HAD ORANGES 1-2 HOURS AGO SEEN ESTEFANÍA GODFREY AT [facility] LAST WEEK FOR THIS PROBLEM AND HAD AN ABDOMINAL ULTRASOUND DONE AT [facility]--PT STATES IT WAS "INCONCLUSIVE" AND HAS A HIDA SCAN SCHEDULED FOR LATER THIS WEEK SYMPTOMS ARE NO DIFFERENT TODAY HAS NOT TAKEN ANYTHING FOR SYMPTOMS NO PRIOR ABDOMINAL SURGERIES, HAS BEEN DX WITH GERD, BUT HAS NEVER HAD ENDOSCOPY OR GI STUDIES PT IS INSULIN DEPENDENT DIABETIC, NEVER CHECKS BLOOD SUGARS OR FOLLOWS ANY DIET. LMP--> 3 YEARS AGO. SON IS 3 YEARS OLD AND HAD MIRENA PLACED AFTER DELIVERY. NO PERIOD SINCE THEN PCP: ESTEFANÍA GODFREY AT [facility] Allergies and Home Medications Allergies Uncoded Allergies: NASAL SPRAYS (Adverse Reaction, Mild, HEADACHES, 07/24/18) Patient Home Medication List Home Medication List Reviewed: Yes Bacitracin Zinc (Antibiotic) 28.4 Gm Oint...g., 28.4 GM TP DAILY Prescribed by: LOPEZ ESPANA on 11/15/192004 Buspirone HCl (Buspirone HCl) 7.5 Mg Tablet, 7.5 MG PO TID, (Reported) Entered as Reported by: MICHELLE DE LA VEGA on 01/19/191833 Cephalexin (Keflex) 500 Mg Capsule, 500 MG PO TID Prescribed by: LOPEZ ESPANA on 11/15/191920 Cyclobenzaprine HCl (Cyclobenzaprine HCl) 10 Mg Tablet, 10 MG PO TID PRN for MUSCLE SPASMS, (Reported) Entered as Reported by: KUNAL FABIAN on 01/20/19 09 Escitalopram Oxalate (Escitalopram Oxalate) 20 Mg Tablet, 20 MG PO HS, (Reported) Entered as Reported by: MICHELLE DE LA VEGA on 01/19/19 1834 Hydrocodone/Acetaminophen (Hydrocodone/Acetaminophen 5 MG/325 MG TAB) 1 Each Tab let, 1 TAB PO Q4-6HR Prescribed by: LOPEZ ESPANA on 11/15/19 192 Hyoscyamine Sulfate (Levsin-Sl) 0.125 Mg Tab.subl, 0.25 MG SL Q4H Prescribed by: HERMELINDA GARNICA on 11/28/21 210 Insulin Aspart (Novolog Flexpen) 300 Units/3 Ml Solution, 10 UNITS SQ AC Prescribed by: MADISON VELASQUEZ on 01/20/19 104 Montelukast Sodium (Montelukast Sodium) 10 Mg Tablet, 10 MG PO HS, (Reported) Entered as Reported by: KUNAL FABIAN on 01/20/19916 Ondansetron (Ondansetron Odt) 4 Mg Tab.rapdis, 4 MG PO Q4H Prescribed by: HERMELINDA GARNICA on 11/28/21 210 Pen Needle, Diabetic (Advocate Pen Needle) 1 Each Dis.needle, EACH [facility] AC, (DME) Prescribed by: MADISON VELASQUEZ on 01/20/19 1042 Sucralfate (Carafate) 1 Gm Tablet, 1 GM PO QID Prescribed by: HERMELINDA GARNICA on 11/28/21 2100 Review of Systems Review of Systems Constitutional: no symptoms reported Respiratory: No Symptoms Reported Cardiovascular: No Symptoms Reported Gastrointestinal: See HPI, Abdominal Pain, Nausea; Denies Vomiting Genitourinary: No Symptoms Reported Musculoskeletal: see HPI, back pain Skin: no symptoms reported Psychiatric/Neurological: No Symptoms Reported Endocrine: No Symptoms Reported Hematologic/Lymphatic: No Symptoms Reported Past Zhxopoh-Vekqqv-Mlmlmf Hx Patient Social History Tobacco Use?: No Smoking Status: Never a Smoker Smokeless Tobacco Frequency: Never a User Use of E-Cig and/or Vaping dev: No Use of E-Cig and/or Vaping Ruperto: Never a User Substance use?: No Alcohol Use?: No Immunizations Up To Date Tetanus Booster (TDap): Less than 5yrs PED Vaccines UTD: Yes Influenza Vaccine Up-to-Date: No; Not Current COVID19 Vaccine Webmethods Consultant: MODERNLuis Eduardo Seasonal Allergies Seasonal Allergies: Yes Past Medical History Surgery/Hospitalization HX: TYPE II INSULIN DEPENDENT DIABETES, HIGH CHOLESTROL, DEPRESSION, ANXIETY, GERD, SEASONAL ALLERGIES Surgeries: Yes (BILAT FEET FRACTURES-SCREWS PLACED; X 1 ON 07/26/18; ) Adenoidectomy, Section, Orthopedic, Tonsillectomy Respiratory: No Cardiac: No Neurological: Yes Headaches /Migraines Reproductive Disorders: No Female Reproductive Disorders: Denies Sexually Transmitted Disease: No HIV/AIDS: No Genitourinary: No Gastrointestinal: Yes Gastroesophageal Reflux Musculoskeletal: Yes Fractures Endocrine: Yes (GESTATIONAL DIABETES) Diabetes, Non-Insulin dep HEENT: Yes (GLASSES) Loss of Vision: Bilateral Hearing Impairment: Denies Cancer: No Psychosocial: Yes Anxiety, Depression Integumentary: No Blood Disorders: No Adverse Reaction/Blood Tranf: No (N/A) Family Medical History Diabetes mellitus (grandfather) FH: heart disease (grandfather) No Pertinent Family Hx Physical Exam Vital Signs Vital Signs - First Documented 11/28/21 18:59 Temp 36.7 Pulse 85 Resp 18 B/P (MAP) 112/81 (91) Pulse Ox 98 O2 Delivery Room Air Capillary Refill : Less Than 3 Seconds Height/Weight/BMI Height: 5'6.00" Weight: 312lbs. 0.0oz. 141.223430ft; 47.00 BMI Method:Stated General Appearance: WD/WN, no apparent distress, obese (MORBIDLY OBESE. WALKS UPRIGHT AND MOVES WITHOUT DIFFICULTY. SITTING SAO TOMEAN-STYLE, TEXTING/PLAYING ON PHONE) HEENT: No scleral icterus (R), No scleral icterus (L) Respiratory: normal breath sounds, no respiratory distress, no accessory muscle use Cardiovascular: regular rate, rhythm, no murmur Gastrointestinal: soft, tenderness (DIFFUSE UPPER ABDOMINAL TENDERNESS, BUT MOST TENDER IN RIGHT UPPER QUADRANT) Extremities: normal inspection, normal capillary refill Back: normal inspection, no CVA tenderness Neurologic/Psychiatric: cotton expert II-XII nml as tested, no motor/sensory deficits, alert, normal mood/affect, oriented x 3 Skin: normal color, warm/dry, tattoos/piercings (TATTOOS) Progress/Results/Core Measures Results/Orders Lab Results Laboratory Tests Test 11/28/21 19:10 11/28/21 19:13 Range/Units Urine Color YELLOW Urine Clarity CLEAR Urine pH 7.0 5-9 Urine Specific [place] 1.015 L 1.016-1.022 Urine Protein NEGATIVE NEGATIVE Urine Glucose (UA) NEGATIVE NEGATIVE Urine Ketones NEGATIVE NEGATIVE Urine Nitrite NEGATIVE NEGATIVE Urine Bilirubin NEGATIVE NEGATIVE Urine Urobilinogen 0.2 < = 1.0 MG/DL Urine Leukocyte Esterase NEGATIVE NEGATIVE Urine RBC (Auto) 2+ H NEGATIVE Urine RBC 0-2 /HPF Urine WBC 0-2 /HPF Urine Crystals NONE /LPF Urine Bacteria TRACE /HPF Urine Casts NONE /LPF Urine Mucus NEGATIVE /LPF Urine Culture Indicated NO Urine Opiates Screen NEGATIVE NEGATIVE Urine Oxycodone Screen NEGATIVE NEGATIVE Urine Methadone Screen NEGATIVE NEGATIVE Urine Propoxyphene Screen NEGATIVE NEGATIVE Urine Barbiturates Screen NEGATIVE NEGATIVE Ur Tricyclic Antidepressants Screen NEGATIVE NEGATIVE Urine Phencyclidine Screen NEGATIVE NEGATIVE Urine Amphetamines Screen NEGATIVE NEGATIVE Urine Methamphetamines Screen NEGATIVE NEGATIVE Urine Benzodiazepines Screen NEGATIVE NEGATIVE Urine Cocaine Screen NEGATIVE NEGATIVE Urine Cannabinoids Screen NEGATIVE NEGATIVE White Blood Count 7.6 4.3-11.0 10^3/uL Red Blood Count 4.89 3.80-5.11 10^6/uL Hemoglobin 13.9 11.5-16.0 g/dL Hematocrit 42 35-52 % Mean Corpuscular Volume 87 80-99 fL Mean Corpuscular Hemoglobin 28 25-34 pg Mean Corpuscular Hemoglobin Concent 33 32-36 g/dL Red Cell Distribution Width 13.2 10.0-14.5 % Platelet Count 257 130-400 10^3/uL Mean Platelet Volume 9.3 9.0-12.2 fL Immature Granulocyte % (Auto) 0 % Neutrophils (%) (Auto) 67 42-75 % Lymphocytes (%) (Auto) 21 12-44 % Monocytes (%) (Auto) 8 0-12 % Eosinophils (%) (Auto) 3 0-10 % Basophils (%) (Auto) 1 0-10 % Neutrophils # (Auto) 5.1 1.8-7.8 10^3/uL Lymphocytes # (Auto) 1.6 1.0-4.0 10^3/uL Monocytes # (Auto) 0.6 0.0-1.0 10^3/uL Eosinophils # (Auto) 0.2 0.0-0.3 10^3/uL Basophils # (Auto) 0.1 0.0-0.1 10^3/uL Immature Granulocyte # (Auto) 0.0 0.0-0.1 10^3/uL Sodium Level 137 135-145 MMOL/L Potassium Level 4.2 3.6-5.0 MMOL/L Chloride Level 103 98-107 MMOL/L Carbon Dioxide Level 22 21-32 MMOL/L Anion Gap 12 5-14 MMOL/L Blood Urea Nitrogen 11 7-18 MG/DL Creatinine 0.69 0.60-1.30 MG/DL Estimat Glomerular Filtration Rate 115 BUN/Creatinine Ratio 16 Glucose Level 139 H 70-105 MG/DL Calcium Level 9.6 8.5-10.1 MG/DL Corrected Calcium 9.2 8.5-10.1 MG/DL Magnesium Level 1.7 1.6-2.4 MG/DL Total Bilirubin 0.9 0.1-1.0 MG/DL Aspartate Amino Transf (AST/SGOT) 95 H 5-34 U/L Alanine Aminotransferase (ALT/SGPT) 96 H 0-55 U/L Alkaline Phosphatase 73 40-136 U/L Total Protein 7.6 6.4-8.2 GM/DL Albumin 4.5 3.2-4.5 GM/DL Amylase Level 23 L 25-125 U/L Lipase 37 8-78 U/L My Orders Orders - HERMELINDA GARNICA DO Ed Iv/Invasive Line Start (11/28/21 19:21) Urine Bedside (11/28/21 19:21) Amylase (11/28/21 19:21) Cbc With Automated Diff (11/28/21 19:21) Comprehensive Metabolic Panel (11/28/21 19:21) Drug Screen Stat (Urine) (11/28/21 19:21) Lipase (11/28/21 19:21) Magnesium (11/28/21 19:21) Ua Culture If Indicated (11/28/21 19:21) Ct Abdomen/Pelvis W (11/28/21 19:34) Acute Abd Series (11/28/21 19:34) Ondansetron Injection (Zofran Injectio (11/28/21 19:45) Ed Iv/Invasive Line Start (11/28/21 19:34) Ns Iv 1000 Ml (Sodium Chloride 0.9%) (11/28/21 19:45) Ketorolac Injection (Toradol Injection) (11/28/21 19:34) Pantoprazole Injection (Protonix Injecti (11/28/21 19:45) Iohexol Injection (Omnipaque 350 Mg/Ml 1 (11/28/21 20:15) Received Contrast (Hold Metformin- Contr (11/28/21 20:15) Ns (Ivpb) (Sodium Chloride 0.9% Ivpb Bag (11/28/21 20:15) Medications Given in ED Current Medications Medications Dose Ordered Sig/Nas Route Start Time Stop Time Status Last Admin Dose Admin Iohexol 100 ml ONCE ONCE IV 11/28/21 20:15 11/28/21 20:16 DC 11/28/21 20:11 100 ML Ondansetron HCl 4 mg ONCE ONCE IVP 11/28/21 19:45 11/28/21 19:46 DC 11/28/21 19:51 4 MG Pantoprazole 40 mg ONCE ONCE IV 11/28/21 19:45 11/28/21 19:46 DC 11/28/21 19:52 40 MG Sodium Chloride 100 ml ONCE ONCE IV 11/28/21 20:15 11/28/21 20:16 DC 11/28/21 20:11 80 ML Vital Signs/I&O 11/28/21 18:59 Temp 36.7 Pulse 85 Resp 18 B/P (MAP) 112/81 (91) Pulse Ox 98 O2 Delivery Room Air 11/29/21 00:00 Intake Total 1000 ml Balance 1000 ml Blood Pressure Mean: 91 Progress Progress Note : Progress Note GIVEN IV FLUIDS, ZOFRAN, PROTONIX AND TORADOL UNEVENTFUL ER STAY Diagnostic Imaging Comments CT ABDOMEN/PELVIS--PER RADIOLOGIST REPORT AT 2056 FINDINGS: Included portions of the lung bases show 7-8 mm micronodular density within the included portions of the lingula of the left upper lobe (image 8, series 2). A 6 mm left lower lobe pulmonary micronodule is also identified. CT ABDOMEN: Normal appendix is identified. Small bowel loops are nondistended. Liver is diffusely hypodense on this postcontrast exam. Findings are consistent with hepatic steatosis. No suspicious hepatic lesions are seen. The kidneys, adrenal glands, spleen, and pancreas have a normal CT appearance. Multiple mildly prominent retroperitoneal and central mesenteric lymph nodes are seen within the upper abdomen. Largest of these measures 2.5 x 2.5 cm. Clinical significance and etiology is indeterminate. There is no loculated fluid collection, free fluid, nor free air within the abdomen. Osseous structures show no acute abnormalities. CT PELVIS: Urinary bladder is unopacified. No calculi are seen within the urinary bladder. There is no loculated fluid collection, free fluid or free air within the pelvis. No abnormal lymph nodes are seen. Osseous structures show no acute abnormalities. IMPRESSION: 1. Several mildly prominent central mesenteric upper abdominal lymph nodes are identified. These are of uncertain significance and etiology. Follow-up is advised. 2. Hepatic steatosis. 3. Multiple micronodules within the included portions of the left lung. Please see below for follow-up recommendations. ABDOMEN XRAYS--PER RADIOLOGIST REPORT AT 2114 FINDINGS: Supine and upright views of the abdomen show a nondistended bowel gas pattern. No abnormal air fluid levels or free intraperitoneal air is seen. No abnormal extraosseous calcifications are seen. Bony and soft tissue structures are within normal limits. No organomegaly is identified. Accompanying upright chest shows normal heart size and pulmonary vascularity. The lungs are well aerated and clear. The mediastinum is normal in appearance. IMPRESSION: 1. No bowel obstruction or free air. 2. Normal chest. No pneumonia or pulmonary edema. Reviewed: Reviewed by Me Departure Impression Primary Impression: Upper abdominal pain Additional Impressions: Mesenteric adenitis FATTY LIVER DISEASE Disposition: 01 HOME, SELF-CARE Condition: Stable Departure-Patient Inst. Decision time for Depature: 20:59 Referrals: [facility]/ (PCP) Primary Care Physician ANGELA GODFREY (Family) Primary Care Physician Patient Instructions: Abdominal Pain, Adult ED, Mesenteric Lymphadenitis (DC), Nonalcoholic Fatty Liver Disease (DC) Add. Discharge Instructions: CLEAR LIQUIDS--WATER, BROTH, JELLO, GATORADE BRATS DIET--BANANAS, RICE, APPLESAUCE, TOAST, SALTINES KEEP YOUR APPOINTMENT FOR HIDA SCAN FOLLOW UP WITH YOUR DR THIS WEEK FOR FURTHER CARE All discharge instructions reviewed with patient and/or family. Voiced understanding. Scripts Hyoscyamine Sulfate (Levsin-Sl) 0.125 Mg Tab.subl 0.25 MG SL Q4H, #12 TAB Prov: HERMELINDA GARNICA DO 11/28/21 Ondansetron (Ondansetron Odt) 4 Mg Tab.rapdis 4 MG PO Q4H for Nausea/Vomiting, #10 TAB Prov: HERMELINDA GARNICA DO 11/28/21 Sucralfate (Carafate) 1 Gm Tablet 1 GM PO QID, #60 TAB Prov: HERMELINDA GARNICA DO 11/28/21 HERMELINDA GARNICA DO Nov 28, 2021 19:59
[2021-11-28] MEDS ORDERED: HOLD METFORMIN - RECEIVED CONTRAST 20 ML VIAL IV SCH (20:15)
[2021-11-28] MEDS ORDERED: IOHEXOL 350 MG/ML 100 ML (OMNIPAQUE 350) VIAL IV ONE (20:15)
[2021-11-28] MEDS ORDERED: NS 100 ML (IVPB) BAG IV ONE (20:15)
--- NOTE | 2021-11-28 20:48 | Diagnostic Imaging Report ---
PROCEDURE: CT abdomen and pelvis with contrast. TECHNIQUE: Multiple contiguous axial images were obtained through the abdomen and pelvis after administration of intravenous contrast. Auto Exposure Controls were utilized during the CT exam to meet ALARA standards for radiation dose reduction. All CT scans use one or more of the following dose optimizing techniques: automated exposure control, MA and/or KvP adjustment based on patient size and exam type or iterative reconstruction. INDICATION: Upper quadrant abdominal pain. Nausea. COMPARISON: None FINDINGS: Included portions of the lung bases show 7-8 mm micronodular density within the included portions of the lingula of the left upper lobe (image 8, series 2). A 6 mm left lower lobe pulmonary micronodule is also identified. CT ABDOMEN: Normal appendix is identified. Small bowel loops are nondistended. Liver is diffusely hypodense on this postcontrast exam. Findings are consistent with hepatic steatosis. No suspicious hepatic lesions are seen. The kidneys, adrenal glands, spleen, and pancreas have a normal CT appearance. Multiple mildly prominent retroperitoneal and central mesenteric lymph nodes are seen within the upper abdomen. Largest of these measures 2.5 x 2.5 cm. Clinical significance and etiology is indeterminate. There is no loculated fluid collection, free fluid, nor free air within the abdomen. Osseous structures show no acute abnormalities. CT PELVIS: Urinary bladder is unopacified. No calculi are seen within the urinary bladder. There is no loculated fluid collection, free fluid or free air within the pelvis. No abnormal lymph nodes are seen. Osseous structures show no acute abnormalities. IMPRESSION: 1. Several mildly prominent central mesenteric upper abdominal lymph nodes are identified. These are of uncertain significance and etiology. Follow-up is advised. 2. Hepatic steatosis. 3. Multiple micronodules within the included portions of the left lung. Please see below for follow-up recommendations. PULMONARY NODULE FOLLOW-UP Multiple nodules: <6 mm: * Low risk patient - no routine follow up * High risk patient - optional CT at 12 months 6-8 mm in size: * Low risk patient - Ct at 3-6 months, then consider CT at 18-24 months * High risk patient - CT at 3-6 months, then at 18-24 months >8 mm: * Low risk patient - CT at 3-6 months, then consider CT at 18-24 months * High risk patient - CT at 3-6 months, then at 18-24 months (Use most suspicious nodule as guide to management. Follow up interval may vary according to size and risk) Dictated by: Dictated on workstation # [id number]
[2021-11-28] MEDS ORDERED: SUCR1TAB36 PO (21:00)
[2021-11-28] MEDS ORDERED: HYOS0.1283 SL (21:01)
[2021-11-28] MEDS ORDERED: ONDA4TAB11 PO (21:01)
--- NOTE | 2021-11-28 21:02 | Diagnostic Imaging Report ---
INDICATION: Abdominal pain COMPARISON: CT from same day and previous chest radiograph dated 01/20/2019 FINDINGS: Supine and upright views of the abdomen show a nondistended bowel gas pattern. No abnormal air fluid levels or free intraperitoneal air is seen. No abnormal extraosseous calcifications are seen. Bony and soft tissue structures are within normal limits. No organomegaly is identified. Accompanying upright chest shows normal heart size and pulmonary vascularity. The lungs are well aerated and clear. The mediastinum is normal in appearance. IMPRESSION: 1. No bowel obstruction or free air. 2. Normal chest. No pneumonia or pulmonary edema. Dictated by: Dictated on workstation # [id number]
== END 2021-11-28 21:35 | disposition home or self-care (01) ==
LOC: EDUNIT# 18:57 → ER 18:58
DX: I88.0 Nonspecific mesenteric lymphadenitis (principal); K76.0 Fatty (change of) liver, not elsewhere classified
CPT/HCPCS: 36415; 74022; 74177; 80053; 80306; 81000; 82150; 83690; 83735; 84703; 85025

== ENCOUNTER → 2021-12-05 | Outpatient (CLI) | payer MEDICAID ==
[~2021-12-05] MED LIST changes: +CATHETER FLUSH 10 ML SYR IVP PRN; +HYOS0.1283 SL; +ONDA4TAB11 PO; +SUCR1TAB36 PO
--- NOTE | 2021-12-05 12:58 | Diagnostic Imaging Report ---
INDICATION: Abdominal pain, nausea, and bloating. TECHNIQUE: The patient was administered 5.4 mCi of technetium 99m Choletec and imaging over the abdomen was performed. At 1 hour, the patient ingested 8 ounces of Ensure and the gallbladder ejection fraction was calculated. The patient denied discomfort during the exam. FINDINGS: There is homogeneous uptake of activity by the liver with prompt excretion of activity into the common duct and gallbladder. There is normal passage of activity into the small bowel. The gallbladder ejection fraction is abnormally low at 11%. Normal values are 35% or greater. IMPRESSION: 1. Patent cystic duct and common bile duct. 2. Low gallbladder ejection fraction of 11%. Dictated by: Dictated on workstation # [id number]
== END ==
LOC: CARD 10:00
PROVIDERS: ATTEND Nurse Practitioner
DX: R10.9 Unspecified abdominal pain (principal); R11.0 Nausea; R14.0 Abdominal distension (gaseous); R63.0 Anorexia
CPT/HCPCS: 78227; A9537

== ENCOUNTER 2022-02-18 21:39 | Emergency (ER) | payer MEDICAID ==
[~2022-02-18] VITALS: Ht 167.8 cm; Wt 128.4 kg
[~2022-02-18 21:39] MED LIST changes: -CATHETER FLUSH 10 ML SYR IVP PRN
[2022-02-19] MEDS ORDERED: METH4TAB PO (00:14)
--- NOTE | 2022-02-19 00:14 | ED Cough/URI ---
General Chief Complaint: Cough/Cold/Flu Symptoms Stated Complaint: COUGH/SOB/COVID NEGATIVE Allergies and Home Medications Allergies Uncoded Allergies: NASAL SPRAYS (Adverse Reaction, Mild, HEADACHES, 07/24/18) Patient Home Medication List Bacitracin Zinc (Antibiotic) 28.4 Gm Oint...g., 28.4 GM TP DAILY Prescribed by: LOPEZ ESPANA on 11/15/192004 Buspirone HCl (Buspirone HCl) 7.5 Mg Tablet, 7.5 MG PO TID, (Reported) Entered as Reported by: MICHELLE DE LA VEGA on 01/19/191833 Cephalexin (Keflex) 500 Mg Capsule, 500 MG PO TID Prescribed by: LOPEZ ESPANA on 11/15/191920 Cyclobenzaprine HCl (Cyclobenzaprine HCl) 10 Mg Tablet, 10 MG PO TID PRN for MUSCLE SPASMS, (Reported) Entered as Reported by: KUNAL FABIAN on 01/20/19916 Escitalopram Oxalate (Escitalopram Oxalate) 20 Mg Tablet, 20 MG PO HS, (Reported) Entered as Reported by: MICHELLE DE LA VEGA on 01/19/191833 Hydrocodone/Acetaminophen (Hydrocodone/Acetaminophen 5 MG/325 MG TAB) 1 Each Tablet, 1 TAB PO Q4-6HR Prescribed by: LOPEZ ESPANA on 11/15/191920 Hyoscyamine Sulfate (Levsin-Sl) 0.125 Mg Tab.subl, 0.25 MG SL Q4H Prescribed by: HERMELINDA GARNICA on 11/28/212100 Insulin Aspart (Novolog Flexpen) 300 Units/3 Ml Solution, 10 UNITS SQ AC Prescribed by: MADISON VELASQUEZ on 01/20/191041 Montelukast Sodium (Montelukast Sodium) 10 Mg Tablet, 10 MG PO HS, (Reported) Entered as Reported by: KUNAL FABIAN on 01/20/19916 Ondansetron (Ondansetron Odt) 4 Mg Tab.rapdis, 4 MG PO Q4H Prescribed by: HERMELINDA GARNICA on 11/28/212100 Pen Needle, Diabetic (Advocate Pen Needle) 1 Each Dis.needle, EACH [facility] AC, (DME) Prescribed by: MADISON VELASQUEZ on 01/20/191041 Sucralfate (Carafate) 1 Gm Tablet, 1 GM PO QID Prescribed by: HERMELINDA GARNICA on 11/28/21 2100 Past Lmseulp-Hxeses-Pfcaoj Hx Immunizations Up To Date Tetanus Booster (TDap): Less than 5yrs PED Vaccines UTD: Yes Seasonal Allergies Seasonal Allergies: Yes Past Medical History Surgery/Hospitalization HX: TYPE II INSULIN DEPENDENT DIABETES, HIGH CHOLESTROL, DEPRESSION, ANXIETY, GERD, SEASONAL ALLERGIES Surgeries: Yes (BILAT FEET FRACTURES-SCREWS PLACED; X 1 ON 07/26/18; ) Adenoidectomy, Section, Orthopedic, Tonsillectomy Respiratory: No Cardiac: No Neurological: Yes Headaches /Migraines Reproductive Disorders: No Female Reproductive Disorders: Denies Sexually Transmitted Disease: No HIV/AIDS: No Genitourinary: No Gastrointestinal: Yes Gastroesophageal Reflux Musculoskeletal: Yes Fractures Endocrine: Yes (GESTATIONAL DIABETES) Diabetes, Non-Insulin dep HEENT: Yes (GLASSES) Loss of Vision: Bilateral Hearing Impairment: Denies Cancer: No Psychosocial: Yes Anxiety, Depression Integumentary: No Blood Disorders: No Adverse Reaction/Blood Tranf: No (N/A) Family Medical History Diabetes mellitus (grandfather) FH: heart disease (grandfather) No Pertinent Family Hx Physical Exam Capillary Refill : Height: 5'6.00" Weight: 312lbs. 0.0oz. 141.748323lz; 47.00 BMI Method:Stated Progress/Results/Core Measures Suspected Sepsis SIRS Temperature: Pulse: Respiratory Rate: Blood Pressure / Mean: Results/Orders Lab Results Laboratory Tests Test 02/18/22 23:10 Range/Units Influenza Type A (RT-PCR) Not Detected Not Detecte Influenza Type B (RT-PCR) Not Detected Not Detecte SARS-CoV-2 RNA (RT-PCR) Not Detected Not Detecte My Orders Orders - HERMELINDA GARNICA DO Covid 19 Inhouse Test (02/18/22 22:46) Influenza A And B By Pcr (02/18/22 22:46) Isolation Central Supply Req (02/18/22 22:46) Vital Signs/I&O Capillary Refill : Departure Impression Primary Impression: Upper respiratory infection Additional Impressions: Bronchitis Laryngitis Seasonal allergies Disposition: 01 HOME, SELF-CARE Condition: Stable Departure-Patient Inst. Decision time for Depature: 00:13 Referrals: [facility] (PCP) Primary Care Physician ANGELA GODFREY (Family) Primary Care Physician Patient Instructions: Bronchitis, Adult ED, Laryngitis (DC), Seasonal Allergies (DC), Upper Respiratory Infection ED Add. Discharge Instructions: CONTINUE YOUR MEDICATIONS PRESCRIBED FOLLOW UP WITH YOUR DR IN 3-4 DAYS IF NO BETTER All discharge instructions reviewed with patient and/or family. Voiced understanding. Scripts Methylprednisolone (Medrol) 4 Mg Tab.ds.pk 4 MG PO UD for 6 Days, #21 PKG PER DOSE PACK INSTRUCTIONS Prov: HERMELINDA GARNICA DO 02/19/22 HERMELINDA GARNICA DO Feb 19, 2022 00:14
[2022-02-19] MEDS ORDERED: methylPREDNISolone 125 MG (Solu-MEDROL) VIAL IM ONE (00:15)
[2022-02-19 00:26] VITALS: BP 129/83
== END 2022-02-19 00:26 | disposition home or self-care (01) ==
LOC: EDUNIT# 21:39 → ER 21:40
DX: J40 Bronchitis, not specified as acute or chronic (principal); J04.0 Acute laryngitis; J30.2 Other seasonal allergic rhinitis; E11.9 Type 2 diabetes mellitus without complications; Z79.4 Long term (current) use of insulin; Z20.822 Contact with and (suspected) exposure to COVID-19
CPT/HCPCS: 87636; 99284